=== PATIENT | female | born 1960 | race Caucasian/White ===

== ENCOUNTER → 2017-01-05 | Outpatient (CLI) | payer OTHER ==
--- NOTE | 2017-01-05 11:37 | EST ---
DATE OF SERVICE: 01/05/2017 AGE: 56Y SEX: F HT: 61 WT: 179 lbs. Protocol Arya: X Other: Stage: II Dur. of Exercise: 4-1/2 minutes *Heart Rate Blood Pressure *Rest: 90 Rest: 119/76 * *Max. Achieved: 161 Maximum BP: 172/95 85% PMHR: 140 100% PMHR: 165 *METS: 5 INDICATIONS: Chest pain. MEDICATIONS: Baseline EKG shows sinus rhythm, inferolateral ST-T wave changes. Patient exercised on Arya protocol for a total of 4-1/2 minutes, achieving 5 METs, 98% of predicted maximal heart rate without chest pain. At peak exercise, there was [address] segment depression noted. CONCLUSIONS: 1. Poor exercise tolerance. 2. Inconclusive EKG part of the stress test due to baseline EKG abnormalities.
== END | disposition home or self-care (01) ==
LOC: RADNMMAIN 10:00
PROVIDERS: ATTEND Family Medicine
DX: R07.89 Other chest pain (principal)
CPT/HCPCS: 93017

== ENCOUNTER → 2017-11-30 | Outpatient (CLI) | payer OTHER ==
--- NOTE | 2017-12-03 11:33 | MM ---
Reason for exam: screening (asymptomatic). Last mammogram was performed 2 years and 9 months ago. History: Patient is postmenopausal. Family history of breast cancer in grandmother. Took hormonal contraceptives for 3 years beginning at age 18. Took estrogen for 1 year. Physical Findings: A clinical breast exam by your physician is recommended on an annual basis and results should be correlated with mammographic findings. MG Screening Mammo w CAD Bilateral CC and MLO view(s) were taken. Prior study comparison: February 19, 2015, bilateral MG screening mammo w CAD. March 28, 2013, bilateral digital screening mammo w/CAD. The breast tissue is heterogeneously dense. This may lower the sensitivity of mammography. There is no discrete abnormality. No significant changes when compared with prior studies. ASSESSMENT: Negative, BI-RAD 1 RECOMMENDATION: Routine screening mammogram of both breasts in 1 year.
== END | disposition home or self-care (01) ==
LOC: RADMAMWWP 09:41
PROVIDERS: ATTEND Family Medicine
DX: Z12.31 Encounter for screening mammogram for malignant neoplasm of breast (principal)
CPT/HCPCS: 77067

== ENCOUNTER → 2018-07-26 | Outpatient (CLI) | payer OTHER ==
--- NOTE | 2018-07-26 16:36 | MR ---
MRI CERVICAL SPINE: CLINICAL HISTORY: Benign head tremor, spondylosis, neck pain TECHNIQUE: Multiplanar, multisequence imaging of the cervical spine and brain COMPARISON: Prior MR cervical spine 03/19/2015 FINDINGS: Sagittal images of the cervical spine show the craniocervical junction to appear within nor mal limits. There may be a spinal curvature. The cervical and upper thoracic spinal cord is normal in course, caliber, and signal. Cervical vertebral bodies show preserved height. There is multilevel spondylosis. Endplate discogenic marrow signal changes are present. Alignment is near stable. Loss of disc height signal is greatest at C4-5, C5-6, C6-7. C2-3 shows minimal anterolisthesis grade 1, no foraminal encroachment or central stenosis, no disc he rniation. C3-4: No significant central stenosis. No sizable disc herniation. Mild right-sided foraminal encroac hment. C4-5: Posterior broad-based disc bulge causes mild anterior mass effect on the thecal sac. No signifi cant central stenosis. Lateral extension endplate disc complex encroaches on bilateral foramina right greater than left. C5-6: Lateral extension endplate disc complex causes foraminal encroachment greater than right. Poste rior extension endplate disc complex causes mild anterior mass effect on the thecal sac, no significa nt central stenosis. C6-7: Broad-based disc bulge causes mild anterior mass effect on the thecal sac. There is some mild b ilateral foraminal encroachment. C7-T1: Unremarkable IMPRESSION: Stable mild degenerative disc disease. Brain MRI: There is no restricted diffusion. No hydrocephalus or hemorrhage. Corpus callosum, cervica l medullary junction, cerebellopontine angles are unremarkable. There is a partially empty sella. The re are normal vascular flow voids. The orbits show a symmetric appearance. Scattered hyperintensities are present within the frontal white matter on inversion recovery and T2-weighted sequences, approxi mately 5 lesions. Mild mucosal disease present within the ethmoid air cells, maxillary sinus, may be mucus retention cyst on the left. IMPRESSION: Nonspecific white matter demyelination of questionable clinical significance.
== END | disposition home or self-care (01) ==
LOC: RADMRIMAIN 14:56
PROVIDERS: ATTEND Psychiatry & Neurology Neurology
DX: M50.30 Other cervical disc degeneration, unspecified cervical region (principal); G37.8 Other specified demyelinating diseases of central nervous system; G25.0 Essential tremor
CPT/HCPCS: 70551; 72141

== ENCOUNTER → 2018-09-06 | Outpatient (CLI) | payer OTHER ==
--- NOTE | 2018-09-08 11:52 | MR ---
EXAMINATION TYPE: MR knee RT wo con DATE OF EXAM: 09/06/2018 COMPARISON: None HISTORY: Rt knee pain TECHNIQUE: Multiplanar, multisequence images of the knee is performed without IV contrast. FINDINGS: MEDIAL MENISCUS: Anterior and posterior horns are intact without tear. LATERAL MENISCUS: Anterior posterior horn of meniscus tear. Anterior displacement of anterior horn te ar. CRUCIATE LIGAMENTS: The anterior and posterior cruciate ligaments are intact and unremarkable. COLLATERAL LIGAMENTS: The medial collateral ligament and lateral collateral ligament complex are inta ct and unremarkable. EXTENSOR MECHANISM: Visualized quadriceps and patellar tendons are intact. EFFUSION: Mild to moderate joint effusion suprapatellar effusion. POPLITEAL CYST: No popliteal/hughes cyst. TRICOMPARTMENT SPACES: Severe narrowing tricompartment joint spaces compatible with osteoarthritis. A ssociated spur formation. Subchondral cyst formation. Mild chondromalacia patella. CARTILAGE: Cartilaginous thinning BONE MARROW SIGNAL: No focal abnormal marrow signal is appreciated. OTHER: No additional significant abnormality is appreciated. IMPRESSION: 1 complex tear anterior horn lateral meniscus. Radial tear posterior horn lateral meniscus meniscus. 2. Moderately advanced changes of osteoarthritis and chondromalacia patella.
== END | disposition home or self-care (01) ==
LOC: RADMRIMAIN 18:38
PROVIDERS: ATTEND Physician Assistant
DX: S83.271A Complex tear of lateral meniscus, current injury, right knee, initial encounter (principal); M17.11 Unilateral primary osteoarthritis, right knee; M22.41 Chondromalacia patellae, right knee

== ENCOUNTER → 2018-10-18 | Outpatient (CLI) | payer OTHER ==
[2018-10-18 16:36] LABS: HCT 41.1 % (34.0-46.0); HGB 13.6 gm/dL (11.4-16.0); MCH 29.1 pg (25.0-35.0); MCV 88.3 fL (80.0-100.0); Mean Platelet Volume 6.6; Platelet Count 230 k/uL (150-450); RBC 4.66 m/uL (3.80-5.40); RDW 13.3 % (11.5-15.5); WBC 3.7 k/uL (3.8-10.6)
[2018-10-18 16:39] LABS: Appearance,Urine Clear (Clear); Bilirubin,Urine Negative (Negative); Blood,Urine Trace (Negative); Color,Urine Light Yellow; Glucose,Urine (UA) Negative (Negative); Ketones,Urine Negative (Negative); Leukocyte Esterase,Urine Moderate (Negative); Mucus,Urine Rare /hpf; Nitrite,Urine Negative (Negative); Protein,Urine Negative (Negative); RBC,Urine 2 /hpf (0-5); Specific Gravity,Urine 1.011 (1.001-1.035); Squamous Epithelial Cell,Urine 3 /hpf (0-4); Urobilinogen,Urine <2.0 mg/dL (<2.0); WBC,Urine 3 /hpf (0-5)
[2018-10-18 16:41] LABS: Partial Thromboplastin Time 30.3 sec (22.0-30.0); Prothrombin Time 10.4 sec (9.0-12.0)
[2018-10-18 16:44] LABS: Albumin 4.1 g/dL (3.5-5.0); Calcium 9.2 mg/dL (8.4-10.2); Potassium 4.4 mmol/L (3.5-5.1); Total Bilirubin 0.3 mg/dL (0.2-1.3); Total Protein 6.7 g/dL (6.3-8.2)
== END | disposition home or self-care (01) ==
LOC: LABPAT 15:40
PROVIDERS: ATTEND Orthopaedic Surgery Sports Medicine
DX: Z01.818 Encounter for other preprocedural examination (principal); Z01.812 Encounter for preprocedural laboratory examination
CPT/HCPCS: 36415; 80053; 81001; 85027; 85610; 85730; 87070; 93005

== ENCOUNTER 2018-11-06 10:51 | Inpatient (IN) | payer OTHER ==
[2018-10-23 11:20] VITALS: BMI 25.9
[~2018-11-06 10:51] MED LIST: ACETAMINOPHEN TAB 500 MG TAB PO ONE; DEXAMETHASONE SOD PHOSPHATE 10 MG/ML 1 ML VIAL IV ONE; HYDROmorphone 0.5 MG/0.5 ML SYRINGE IVP PRN; LIDOCAINE 1% 20 ML VIAL (10MG/ML) FOR IV START INTRADERMA PRN; MELOXICAM 7.5 MG TAB PO ONE; MIDAZOLAM (PF) 2 MG/2 ML VIAL IV PRN; ONDANSETRON 4 MG/2 ML VIAL IVP ONE; ROPIVACAINE 246.25 MG, EPINEPHrine 0.5 MG, KETOROLAC 30 MG, cloNIDine HCL/PF 80 MCG, WA... MISCELLANE ONE; SCOPOLAMINE 1.5MG/72HR PATCH TRANSDERM ONE; TRANEXAMIC ACID 1,000 MG in SODIUM CHLORIDE 0.9% 50 ML IVPB ONE; ceFAZolin IN SWFI 2 GM/20 ML SYRINGE IVP ONE
[2018-11-06] MEDS: LACTATED RINGERS 1,000 ML IV SCH ×4 (11:27→23:25)
[2018-11-06] MEDS ORDERED: HYDROcodone/APAP 5-325MG 1 EACH TAB PO PRN (12:48)
[2018-11-06] MEDS ORDERED: HYDROcodone/APAP 10-325MG 1 EACH TAB PO PRN (12:48)
[2018-11-06] MEDS ORDERED: BISACODYL 10 MG SUPP RECTAL PRN (12:48)
[2018-11-06] MEDS ORDERED: MAGNESIUM HYDROXIDE 2,400 MG/10 ML CUP PO PRN (12:48)
[2018-11-06] MEDS ORDERED: hydrOXYzine PAMOATE 25 MG CAP PO PRN (12:48)
[2018-11-06] MEDS ORDERED: traMADol 50 MG TAB PO PRN (12:48)
[2018-11-06] MEDS ORDERED: TEMAZEPAM 15 MG CAP PO PRN (12:48)
[2018-11-06] MEDS ORDERED: HYDROmorphone 1 MG/ML 1 ML SYRINGE IVP PRN (12:48)
[2018-11-06] MEDS ORDERED: ACETAMINOPHEN TAB 325 MG TAB PO PRN (12:48)
[2018-11-06] MEDS ORDERED: HYDROmorphone 0.5 MG/0.5 ML SYRINGE IVP PRN ×2 (12:48)
[2018-11-06] MEDS ORDERED: HYDROcodone/APAP 7.5-325MG 1 EACH TAB PO PRN (12:48)
[2018-11-06] MEDS ORDERED: Acetaminophen-Codeine 300-30mg TAB PO PRN (12:48)
[2018-11-06] MEDS ORDERED: NALOXONE 0.4 MG/ML 1 ML VIAL IV PRN ×2 (12:48→16:57)
[2018-11-06] MEDS ORDERED: DIAZEPAM 5 MG TAB PO PRN (12:48)
[2018-11-06] MEDS ORDERED: NA PHOS,M-B/NA PHOS,DI-BA 133 ML ENEMA RECTAL PRN (12:48)
[2018-11-06] MEDS ORDERED: MORPHINE SULFATE (PF) 0.3 MG/0.3 ML SYR ONE (13:13)
[2018-11-06] MEDS ORDERED: PHENYLEPHRINE-0.9% NACL SYG 1 MG/10 ML SYRINGE ONE (13:13)
[2018-11-06] MEDS ORDERED: LIDOCAINE 1% INJ 10MG/ML (20 ML MDV) ONE (13:13)
[2018-11-06] MEDS ORDERED: TRANEXAMIC ACID 1,000 MG/10 ML VIAL ONE (13:13)
[2018-11-06] MEDS ORDERED: MIDAZOLAM 2 MG/2 ML VIAL ONE (13:13)
[2018-11-06] MEDS ORDERED: fentaNYL (PF) 50 MCG/ML 50 ML VIAL ONE (13:13)
[2018-11-06] MEDS ORDERED: PROPOFOL 10 MG/ML 20 ML VIAL IV ONE (13:13)
[2018-11-06] MEDS ORDERED: SODIUM CHLORIDE 0.9% 100 ML BAG ONE (13:13)
[2018-11-06] MEDS ORDERED: ceFAZolin 3,000 MG in SODIUM CHLORIDE 0.9% IRRIGATIO 3,000 ML IRRIGATION ONE (13:52)
--- NOTE | 2018-11-06 15:53 | XR ---
EXAMINATION TYPE: XR knee limited RT DATE OF EXAM: 11/06/2018 CLINICAL HISTORY: Right knee pain and arthritis status post total knee replacement. TECHNIQUE: Portable AP and crosstable lateral views of the right knee are obtained immediately posto peratively. COMPARISON: Right knee MRI September 06, 2018 FINDINGS: Metallic hardware from total right knee arthroplasty is seen and appears satisfactory in a lignment and position. There is evidence of recent surgery with diffuse subcutaneous gas and soft ti ssue swelling noted. IMPRESSION: METALLIC HARDWARE FROM TOTAL RIGHT KNEE ARTHROPLASTY IS SATISFACTORY IN ALIGNMENT.
[2018-11-06] MEDS ORDERED: LACTATED RINGERS 1,000 ML IV ONE ×2 (16:47)
[2018-11-06] MEDS ORDERED: ONDANSETRON 4 MG/2 ML VIAL IVP PRN (16:57)
[2018-11-06] MEDS ORDERED: diphenhydrAMINE 50 MG/ML 1 ML VIAL IVP PRN (16:57)
[2018-11-06] MEDS ORDERED: MORPHINE SULFATE 4 MG/ML SYRINGE IVP PRN (16:57)
--- NOTE | 2018-11-06 18:10 | OP ---
OPERATIVE REPORT PROCEDURE: 11/06/2018. SURGEON: Dr. Adolph Quintanilla. MANAGER BUSINESS PROCESS: Jarrell HURTADO. PREOPERATIVE DIAGNOSIS: Right knee osteoarthrosis. POSTOP DIAGNOSIS: Right knee osteoarthrosis. OPERATION: Right total knee arthroplasty. ANESTHESIA: Spinal with sedation. ESTIMATED BLOOD LOSS: 100 mL. Tourniquet time was 47 minutes at 250 mmHg. COMPLICATIONS: None apparent. DRAINS: None. DISPOSITION: Postanesthesia care unit. INDICATIONS: Olivia is a very pleasant 58-year-old female with longstanding history of right knee pain. History and physical examination are consist with advanced right knee osteoarthrosis. She has been through significant nonoperative management at this point. Further treatment options were discussed and she decided to go forward with right total knee arthroplasty. The risks of procedure were discussed with her in detail. These risks include, but are not limited to risk of infection, nerve damage, bleeding, pain and risk of deep vein thrombosis which could lead to fatal pulmonary embolism. There is also risk of loosening of the implant which could require revision operation. The patient understands these risks. All of her questions were answered to her satisfaction. Appropriate informed consent was obtained. DESCRIPTION OF PROCEDURE: Patient identified in the preoperative holding area. Surgical sites marked by both the patient and myself. She was given 2 g of Ancef IV for prophylactic purposes. She was then transferred to the operative suite. She was placed supine on the operative table. Spinal anesthetic was then administered and dosed per the anesthesia without apparent complication. Examination under anesthesia was then performed. The patient had full extension. She had 100 degrees of flexion and the medial collateral ligament, lateral collateral ligament posterior cruciate ligaments were stable. Tourniquet was then placed high on the right upper thigh well-padded in preparation for surgery. The patient's right lower extremity then prepped and draped in usual sterile fashion. Standard surgical pause undertaken to ensure that we were operating on the correct site and that appropriate preoperative antibiotics were given. All staff in the room in agreement and we proceeded. The outlines of the patella were marked with surgical pen. A planned 10-12 cm vertical incision centered over the patella was marked with surgical pen. Leg was then exsanguinated with an Esmarch dressing. The knee was then flexed and the tourniquet was inflated to 250 mmHg. The total tourniquet time for the procedure was 47 minutes. Incision was then made with a 10 blade scalpel. Dissection was carried down sharply overlying fascia. Great care was taken to minimize the skin flaps. The knee was then exposed using a standard medial parapatellar approach. A small cuff of quadriceps tendon was then left for suturing. She was in a bit of valgus preoperatively. Medially, the tissue was released just enough to place retractors. I did not perform a medial release. The medial meniscus was then excised as well. The lateral meniscus was also released anteriorly. The leg was then externally rotated. The patella was everted and the knee was flexed. The retractors then placed to protect the collateral ligaments. I then proceeded to remove the infrapatellar fat pad. This was excised sharply tangentially with fibers of the patellar tendon. I then proceeded to remove peripheral osteophytes. This was done with a rongeur. I then proceed with the distal femoral resection. She did have near full extension. A planned 9 mm resection was then done. The femoral canal was then entered in the midline of the femur approximately 10 mm anterior to the origin of the posterior cruciate ligament. The janis was then advanced down the center of the femur and placed intramedullary. Based on the preoperative radiographs, the angle between the anatomic and mechanical axis of the femur was approximately 4-5 degrees. The valgus angle of the distal femoral cutting guide was set at 4 degrees for the right knee. The distal femoral cutting guide was then advanced over the intramedullary janis. This was seated firmly against the femur. I then as mentioned planned to take 9 mm off the distal femur. The cutting block was then secured onto the femur with pins. The jig was removed. The distal femoral cut was made through the slot of the block. The pins were then removed. The distal femoral cutting block was removed. The accuracy of the distal femoral cuts was checked with 2 flat bars. I then proceeded with femoral sizing. Posterior referencing sizing guide was held firmly against the resected distal surface of the femur. The posterior condyles were resting on the posterior plane of the guide. The sizing stylus was then placed on the anterior femur. The size measured as a size 4. I then assessed for femoral rotation. Plan was for 3 degrees of external rotation. Three degrees of external rotation was placed onto the jig. These holes were then marked. I then confirmed the rotation by 3 separate methods. This was done using epicondylar axis as well as Whitesides line and posterior referencing. It was deemed that the external rotation was proper. I then went forward with placing the femoral cutting block. This was placed over the previously placed pin holes. The Car wing was then placed on the anterior slots to ensure that we would not notch the anterior femur with the anterior femoral cut. I then proceed with the anterior femoral cut. This was flush with the anterior cortex of the femur. The posterior cuts were then made followed by the anterior chamfer cut, then the posterior chamfer cut. The cutting block was then removed. Throughout the resection, the collateral ligaments were protected with retractors. I then placed a trial size 4 femur. It fit very nice medial-lateral and fit flush with the distal end of the femur. The drill hole was then made. I then proceeded with the tibial cut. I planned for cruciate retaining knee. The guide was placed and set for varus valgus and for slope. The height set for approximate 2 mm resection from the lateral tibial plateau which was the lower side. I was happy with the alignment and the amount of resection. The cutting block was then pinned to the proximal tibia. The alignment janis was removed. The proximal tibia was resected with a reciprocating saw. Again this was done with retractors protecting the collateral ligaments as well as the posterior cruciate ligament. I then proceeded to evaluate the flexion extension gaps. A 10 mm block was then placed. The flexion-extension gaps were equal. I then proceeded with resection of posterior osteophytes. Very minimal posterior osteophytes. This was done with a curved osteotome. This resected the posterior osteophytes and posterior capsule stripping was also done off the posterior aspect of the femur at this time. The osteophytes were then removed. I then proceeded with resection of patella. The thickness of patella was measured using a caliper. The thickness was 22 mm. The thickness of the anticipated patellar dome was taken into account. Resection was then performed and confirmed to be equal in 4 quadrants using a caliper. Approximately 14 mm of bone remained after resection. A 32 x 8 mm standard patellar trial fit was then placed. The holes were drilled. The trial was then placed. I then proceeded with sizing the tibial plate. A size 4 tibial plate fit very nicely. I then placed the trial femur in the tibial tray and patellar button. An 11 mm trial tibial insert was also placed. The components fit very nicely. She had full extension and flexion. The extension and flexion gaps were equal and stable both varus and valgus stress. The patella tracked appropriately. The tibial tray rotation was marked with a Bovie. This was externally rotated properly. I then proceed with tibial preparation. I first drilled the femoral holes, removed the femoral component. The tibial tray was then set for proper external rotation as well as mediolateral placement onto the tibia. It was then pinned into place. I then proceed with punching the keel. I then decided to proceed with cementing of all of our components. The knee was thoroughly irrigated with sterile saline solution via pulse lavage. The lateral geniculate artery was identified and cauterized. All blood was removed from the bone of the tibia femur and patella with pulse lavage. I then proceed with cementing. Two packs of antibiotic bone cement prepared on the back table by the certified surgical first assistant. I then proceeded with cementing the tibia first. The cement was impacted in the keel as well as deeply seated into the bone. A second coat of cement was then placed. The tibia was then impacted into place. Excess cement was removed with Goltry's and jokers. I then proceed with cementing the femoral component. The femoral component was also cemented using standard technique. Excess cement was removed. An 11 mm trial insert was then placed into the knee. It was brought into full extension with a constant axial load placed until the cement had hardened. The patellar component was then cemented. This was held firmly with compressive device until the cement had dried. When the cement had dried, the knee was taken out of extension. All excess cement was removed from around the prosthesis. I then trialed the knee with an 11 mm insert. Flexion extension gaps were appropriate. I then trialed with a 13 mm insert. The flexion-extension gaps felt much better. The knee was stable with a 13 mm insert. It came into full extension. I decided to go forward with a 13 mm cross-linked cruciate- retaining tibial insert. Polyethylene was then placed on the tray and locked into place. The knee was then reduced. The knee was again further irrigated with sterile saline solution with antibiotic added. The tourniquet was then deflated. Total tourniquet time for the procedure was 47 minutes at 250 mmHg. Final components were a [employer] Oxinium legion size 4 cruciate-retaining femoral component, size 4 tibial tray, and a 13 mm cruciate retaining polyethylene insert and a 32 x 8 mm patella. I then proceeded with closure. Again, the knee was thoroughly irrigated. The quadriceps tendon and the medial retinaculum were reapproximated with #2 Ethibond suture. The extensor mechanism was then closed with a running #2 Quill suture. Subcutaneous tissues were closed with 2-0 Vicryl suture. The skin was closed with a running 3-0 Quill suture. Dermabond was applied to the incision. Sterile compressive dressing was then applied. All sponge and needle counts were deemed correct prior to closure. The patient tolerated the procedure without apparent complication. She was transferred recovery room in stable condition. MMODL / IJN: [id number] /
[2018-11-06] MEDS ORDERED: LACTATED RINGERS 250 ML IV PRN (18:30)
[2018-11-06] MEDS ORDERED: CALCIUM CARBONATE 500 MG CHEWABLE PO PRN (19:21)
[2018-11-06] MEDS ORDERED: LISINOPRIL 5 MG TAB PO SCH (21:00)
[2018-11-06] MEDS: SENNOSIDES-DOCUSATE SODIUM 1 EACH TAB PO SCH (23:24)
[2018-11-06] MEDS: ceFAZolin IN SWFI 2 GM/20 ML SYRINGE IVP SCH (23:24)
[2018-11-06] MEDS: ASPIRIN 325 MG TAB PO SCH (23:24)
[2018-11-06] MEDS: ATORVASTATIN 20 MG TAB PO SCH (23:24)
--- NOTE | 2018-11-07 00:51 | CONS ---
CONSULTATION DATE OF CONSULTATION: November 06, 2018. REASON FOR CONSULTATION: Medical management requested by Dr. Quintanilla. CONSULTATION: This is a pleasant 58 -year-old patient of Dr. Jurado. Chronic stable medical conditions include hypertension, hyperlipidemia, depression, hypothyroid. Has undergone right total knee arthroplasty. Some pain is present. Did feel a bit dizzy earlier. No chest pain or short of breath. Did tolerate some diet. Lying in bed. Pain is relatively controlled though present. REVIEW OF SYSTEMS: CONSTITUTIONAL: None. HEENT: None. RESPIRATORY none. GASTROINTESTINAL: None. GENITOURINARY: None. MUSCULOSKELETAL: Arthritic pain in different joints. DERMATOLOGICAL, HEMATOLOGIC, LYMPHATIC: None. PSYCHIATRY: Depression controlled. NEUROLOGICAL: Some dizziness. PAST MEDICAL HISTORY: Hypertension, hyperlipidemia, osteoarthritis, depression, hypothyroid. PAST SURGICAL HISTORY: Tubal ligation, right carpal tunnel syndrome, right knee arthroscopy, tendon graft right hand, colonoscopy. PSYCH: History of depression. SOCIAL HISTORY: The patient smoked for about 17 years. Smoked a pack and a half a day, stopped 18 years ago. Has 1 or 2 drinks a day. Lives with her . FAMILY HISTORY: Breast cancer. HOME MEDICATIONS: 1. Topamax 100 mg p.o. daily. 2. Fish oil 1000 mg p.o. q.h.s. 3. Antivert 12.5 p.o. b.i.d. p.r.n. 4. Zestril 5 mg q.h.s. 5. Synthroid 25 mcg p.o. daily. 6. Motrin p.r.n. 7. Pristiq ER 100 mg p.o. daily. 8. TUMS 500 mg q.i.d. p.r.n. 9. Lipitor 20 mg q.h.s. 10.Aspirin 325 p.o. daily. ALLERGIES: TO CODEINE AND NICKEL. PHYSICAL EXAMINATION: VITAL SIGNS: Temperature 98.8, pulse 81, respiration 16, blood pressure 98/59, pulse ox 100 percent. GENERAL APPEARANCE: Average build, lying in bed, not in distress. EYES: Pupils equal. Conjunctivae normal. HEENT: External appearance of nose and ears normal. Oral cavity normal. NECK: JVD not raised. Mass not palpable. RESPIRATORY: Effort normal. LUNGS: Fair entry. CARDIOVASCULAR: First and second sounds normal. No edema. ABDOMEN: Soft, nontender. Liver and spleen not palpable. LYMPHATIC: No lymph nodes palpable in the neck and axilla. PSYCHIATRY: Alert and oriented x3. Mood and affect normal. NEUROLOGICAL: Pupils equal. Cranial nerves grossly intact. Power and sensation grossly intact. MUSCULOSKELETAL: Evidence of osteoarthritis some in the hands. Right knee in a dressing. INVESTIGATIONS: Preop blood work showed a white count 3.7, hemoglobin 13.6, potassium 4.4, BUN 19, creatinine 1.10. ASSESSMENT: 1. Right total knee arthroplasty. 2. Hyperlipidemia. 3. Primary osteoarthritis. 4. Depression not otherwise specified. 5. Hypothyroidism. 6. Postop hypotension probably side effect of medications. PLAN: Home medications are resumed. We will hold off patient's Zestril. The patient is given some fluid boluses. We will repeat labs in the morning. Care was discussed with the patient. Questions were answered. Thank you Dr. Quintanilla. Copy to Dr. Jurado. MMODL / MARKOSN: [id number] /
[2018-11-07] MEDS: LEVOTHYROXINE 25 MCG TAB PO SCH (05:25)
[2018-11-07] MEDS: ceFAZolin IN SWFI 2 GM/20 ML SYRINGE IVP SCH (05:25)
--- NOTE | 2018-11-07 07:42 | P.PN ---
Progress Note - Text Progress Note Date: 11/07/18 Postoperative day 1 status post , the knee arthroplasty under spinal anesthesia , and intrathecal morphine given for postoperative analgesia, patient doing well , there is no anesthesia related complications, Patient had no headache, vital signs stable , Assessment and plan= postop day 1 status post total knee arthroplasty, doing well there is no anesthesia related complication.
--- NOTE | 2018-11-07 08:48 | P.PN ---
Subjective Progress Note Date: 11/07/18 Principal diagnosis: S/P Right TKA Patient is seen at bedside this morning. She is postop day #1 from right totoal knee arthroplasty.. She has pain at the surgical site as expected but denies any new complaints. He denies numbness, tingling or calf pain. Review of systems is negative for fever, chills, chest pain, shortness of breath or other Objective - Vital Signs Vital signs: Vital Signs Temp 98.3 F 11/07/18 00:23 Pulse 87 11/07/18 00:23 Resp 16 11/07/18 00:23 BP 100/60 11/07/18 02:01 Pulse Ox 97 11/07/18 00:23 Intake & Output 11/06/18 11/07/18 11/07/18 18:59 06:59 18:59 Intake Total 2101.5 1870 Output Total 100 250 Balance 2001.5 1620 Intake: IV 2101.5 Intake, IV Titration 200 Amount Lactated Ringers 1,000 ml 200 @ 100 mls/hr IV .Q10H PAMELA Rx#:[id number] Oral 1670 Output: Urine 250 Estimated Blood Loss 100 Other: Voiding Method Toilet # Voids 1 - Exam Inspection reveals a benign surgical wound. There is no active bleeding or drainage. Neurovascular status is intact throughout the lower extremity with motor and sensation fully intact. Calf is soft and nontender. 2+ dorsalis pedis pulse and less than 2 second cap refill is present. - Constitutional General appearance: Present: no acute distress Assessment and Plan (1) Knee osteoarthritis Narrative/Plan: He will continue with routine postop orthopedic protocol including pain management, wound care, PT, DVT prophylaxis and medical management. Expect that he will transfer to home tomorrow Current Visit: Yes Status: Acute Priority: Medium Code(s): M17.10 - UNILATERAL PRIMARY OSTEOARTHRITIS, UNSPECIFIED KNEE SNOMED Code(s): 540900147 Time with Patient: Less than 30
[2018-11-07 08:55] LABS: Calcium 8.4 mg/dL (8.4-10.2)
[2018-11-07 09:08] LABS: Basophils % (A) 0 %; Eosinophils % (A) 0 %; Lymphocytes # (A) 1.1 k/uL (1.0-4.8); Lymphocytes % (A) 19 %; MCH 29.5 pg (25.0-35.0); MCV 89.3 fL (80.0-100.0); Mean Platelet Volume 6.4; Monocytes # (A) 0.3 k/uL (0-1.0); Monocytes % (A) 5 %; Neutrophils # (A) 4.1 k/uL (1.3-7.7); Neutrophils % (A) 74 %; Platelet Count 191 k/uL (150-450); RBC 3.47 m/uL (3.80-5.40); RDW 12.7 % (11.5-15.5); WBC 5.6 k/uL (3.8-10.6)
[2018-11-07 09:10] LABS: HGB 10.2 gm/dL (11.4-16.0)
[2018-11-07] MEDS: DESVENLAFAXINE SUCCINATE 50 MG TAB.ER.24H PO SCH (09:27)
[2018-11-07] MEDS: ASPIRIN 325 MG TAB PO SCH ×2 (09:27→21:36)
[2018-11-07] MEDS: TOPIRAMATE 25 MG TAB PO SCH ×2 (09:27→21:36)
[2018-11-07] MEDS: HYDROcodone/APAP 5-325MG 1 EACH TAB PO PRN ×2 (09:30→14:59)
[2018-11-07] MEDS: LACTATED RINGERS 1,000 ML IV SCH (14:00)
[2018-11-07] MEDS: MULTIVITAMINS, THERA 1 EACH TAB PO SCH (14:00)
--- NOTE | 2018-11-07 17:58 | PN ---
PROGRESS NOTE DATE OF SERVICE: 11/07/2018 PRESENTING COMPLAINT: Right knee arthroplasty. INTERVAL HISTORY: Patient is status post right knee arthroplasty. Some pain is present. Has slight nausea. Did tolerate some breakfast. Did work with therapy. No chest pain or shortness of breath. Otherwise feeling well. REVIEW OF SYSTEMS: Done for constitutional, cardiovascular, GI, pulmonary, musculoskeletal; relevant findings as above. CURRENT MEDICATIONS: Reviewed. PHYSICAL EXAMINATION: Temperature 98.1, pulse 57, respiration 18, blood pressure 98/56, pulse 100% on room air. GENERAL APPEARANCE: Sitting up. Comfortable. EYES: Pupils equal. Conjunctivae normal. NECK: JVD not raised. Mass not palpable. RESPIRATORY: Effort normal. Lungs are clear. CARDIOVASCULAR: First and second sounds normal. No edema. ABDOMEN: Soft, non-tender. Liver and spleen not palpable. PSYCHIATRY: Alert and oriented x3. Mood and affect normal. INVESTIGATIONS: White count 5.6, hemoglobin 10.2. ASSESSMENT: 1. Right total knee arthroplasty. 2. Hyperlipidemia. 3. Primary osteoarthritis. 4. Depression not otherwise specified. 5. Hypothyroidism. 6. Postoperative hypertension; secondary side effect of blood loss. 7. Acute blood loss anemia, expected from surgery. PLAN: Continue to hold off patient's Zestril. This can be resumed once the blood pressure comes above 120. Care was discussed with the patient. Questions were answered. Will follow. MMODL / IJN: [id number] /
[2018-11-07] MEDS ORDERED: HYDROcodone/APAP 7.5-325MG 1 EACH TAB PO PRN (18:40)
[2018-11-07] MEDS: FERROUS SULFATE 325 MG TAB PO SCH (18:41)
[2018-11-07] MEDS: HYDROcodone/APAP 7.5-325MG 1 EACH TAB PO PRN (19:00)
[2018-11-07] MEDS: SENNOSIDES-DOCUSATE SODIUM 1 EACH TAB PO SCH (21:35)
[2018-11-07] MEDS: ATORVASTATIN 20 MG TAB PO SCH (21:36)
[2018-11-08 01:22] VITALS: PULSE 79
[2018-11-08] MEDS: HYDROcodone/APAP 7.5-325MG 1 EACH TAB PO PRN ×3 (01:45→15:22)
[2018-11-08] MEDS: LEVOTHYROXINE 25 MCG TAB PO SCH (05:33)
[2018-11-08] MEDS: TOPIRAMATE 25 MG TAB PO SCH (08:32)
[2018-11-08] MEDS: FERROUS SULFATE 325 MG TAB PO SCH ×2 (08:32→16:47)
[2018-11-08] MEDS: MULTIVITAMINS, THERA 1 EACH TAB PO SCH (08:33)
[2018-11-08 08:42] VITALS: BP 116/64; RESP 16; TEMP 98.1
[2018-11-08 08:54] LABS: Calcium 8.7 mg/dL (8.4-10.2); Potassium 4.4 mmol/L (3.5-5.1)
[2018-11-08] MEDS: DESVENLAFAXINE SUCCINATE 50 MG TAB.ER.24H PO SCH (10:43)
[2018-11-08] MEDS: ASPIRIN 325 MG TAB PO SCH (10:43)
--- NOTE | 2018-11-08 12:28 | P.DS ---
Providers Date of admission: 11/06/18 10:51 Expected date of discharge: 11/08/18 Attending physician: Adolph Quintanilla Consults: 11/06/18 12:48 Consult Physician Routine Consulting Provider: Lb Magana Consult Reason/Comments: post op medical management Do you want consulting provider notified?: Yes Primary care physician: Garret Jurado - Discharge Diagnosis(es) (1) Knee osteoarthritis Patient was admitted to the OR on 11/06/2018 to undergo a right total knee arthroplasty. She had failed conservative measures as an outpatient and desired to proceed with elective surgery after given informed consent. She underwent the above procedure which she tolerated well without complication. Postoperative hospital course has remained without complication. On day of discharge she is afebrile, vital signs stable, labs within acceptable ranges, tolerating by mouth meds and diet, voiding without difficulty, positive flatus, denies abdominal pain or calf pain, pain is controlled on oral pain medication and has no new complaints. Wound is benign, neurovascular status is intact, calf is soft and nontender, abdomen soft and nontender. Review of systems is negative for numbness, tingling, fever, chills, chest pain, shortness breath, nausea, vomiting, dizziness, headaches, slurred speech or other. Current Visit: Yes Status: Acute Priority: Medium Procedures: Right TKA Patient Condition at Discharge: Good Plan - Discharge Summary Discharge Rx Participant: Yes New Discharge Prescriptions: New Ferrous Sulfate [Feosol] 325 mg PO BID #1 tab Aspirin 325 mg PO BID #60 tab Docusate [Colace] 100 mg PO BID #60 capsule traMADol HCL [Ultram] 50 mg PO Q4HR PRN #42 tab PRN Reason: Pain No Action Levothyroxine Sodium [Synthroid] 25 mcg PO DAILY Desvenlafaxine Succinate [Pristiq ER] 100 mg PO DAILY Topiramate [Trokendi Xr] 100 mg PO DAILY Lu[place]-3 Fatty Acids/Fish Oil [Fish Oil 1,000 mg Softgel] 1 cap PO HS Lisinopril [Zestril] 5 mg PO HS Calcium Carbonate [Tums] 500 mg PO QID PRN PRN Reason: GERD Ibuprofen [Motrin] 800 mg PO Q8H PRN PRN Reason: Pain Meclizine [Antivert] 12.5 mg PO BID PRN PRN Reason: Vertigo Aspirin 325 mg PO DAILY Atorvastatin [Lipitor] 20 mg PO HS Discharge Medication List Desvenlafaxine Succinate [Pristiq ER] 100 mg PO DAILY 03/04/15 [History] Levothyroxine Sodium [Synthroid] 25 mcg PO DAILY 03/04/15 [History] Lupton-3 Fatty Acids/Fish Oil [Fish Oil 1,000 mg Softgel] 1 cap PO HS 08/20/15 [ History] Topiramate [Trokendi Xr] 100 mg PO DAILY 08/20/15 [History] Aspirin 325 mg PO DAILY 10/23/18 [History] Atorvastatin [Lipitor] 20 mg PO HS 10/23/18 [History] Calcium Carbonate [Tums] 500 mg PO QID PRN 10/23/18 [History] Ibuprofen [Motrin] 800 mg PO Q8H PRN 10/23/18 [History] Lisinopril [Zestril] 5 mg PO HS 10/23/18 [History] Meclizine [Antivert] 12.5 mg PO BID PRN 10/23/18 [History] Ferrous Sulfate [Feosol] 325 mg PO BID #1 tab 11/07/18 [Rx] Aspirin 325 mg PO BID #60 tab 11/08/18 [Rx] Docusate [Colace] 100 mg PO BID #60 capsule 11/08/18 [Rx] traMADol HCL [Ultram] 50 mg PO Q4HR PRN #42 tab 11/08/18 [Rx] Follow up Appointment(s)/Referral(s): [facility] [NON-STAFF] - As Needed (suzanne ) [facility], [NON-STAFF] - As Needed Adolph Quintanilla MD [STAFF PHYSICIAN] - 10 Days Activity/Diet/Wound Care/Special Instructions: Keep wound clean and dry Take meds as directed Follow-up with Dr. Quintanilla in office Weight bear as tolerated May shower in 3 days if no bleeding Discharge Disposition: HOME WITH HOME HEALTH SERVICES
--- NOTE | 2018-11-08 21:16 | PN ---
PROGRESS NOTE DATE OF SERVICE: 11/08/2018. PRESENTING COMPLAINT: Right knee arthroplasty. INTERVAL HISTORY: Patient is status post right knee arthroplasty. Some pain is present. Doing overall better. Did eat well. is present. No new issues. Did work with Therapy. REVIEW OF SYSTEMS: Done for constitutional, cardiovascular, GI, pulmonary, musculoskeletal; relevant findings as above. CURRENT MEDICATIONS: Reviewed. PHYSICAL EXAMINATION: Temperature 98.1, pulse 79, respiration 16, blood pressure 106/64, pulse 100 percent on room air. GENERAL APPEARANCE: Sitting up, comfortable. EYES: Pupils equal. Conjunctivae normal. NECK: JVD not raised. Mass not palpable. Respiratory effort normal. LUNGS: Clear. CARDIOVASCULAR: 1st and 2nd heart sounds normal. No edema. ABDOMEN: Soft nontender. Liver and spleen not palpable. PSYCHIATRY: Alert and oriented x3. Mood and affect normal. Dressing over the right knee. INVESTIGATIONS: Potassium 4.4. ASSESSMENT: 1. Right total knee arthroplasty. 2. Hyperlipidemia. 3. Primary osteoarthritis. 4. Depression, not otherwise specified. 5. Hypothyroidism. 6. Postoperative hypotension secondary side effect of blood loss, improving. 7. Acute blood loss anemia expected from surgery. PLAN: The patient is overall doing much better. Blood pressure has come up. When discharged should follow up with the family doctor. MMODL / IJN: [id number] /
== END 2018-11-08 17:12 | disposition home health service (06) | DRG 470 ==
LOC: 2ORMAIN 10:51 → 4SSUR 16:47
PROVIDERS: ADMIT Orthopaedic Surgery Sports Medicine; ATTEND Orthopaedic Surgery Sports Medicine
PROC: 0SRC069 Replacement of Right Knee Joint with Oxidized Zirconium on Polyethylene Synthetic Substitute, Cemented, Open Approach (ICD-10-PCS; principal; 2018-11-06 12:45)
DX: M17.11 Unilateral primary osteoarthritis, right knee (principal); D62 Acute posthemorrhagic anemia; E03.9 Hypothyroidism, unspecified; E78.5 Hyperlipidemia, unspecified; F32.9 Major depressive disorder, single episode, unspecified; I10 Essential (primary) hypertension; Z80.3 Family history of malignant neoplasm of breast; Z87.891 Personal history of nicotine dependence; I34.0 Nonrheumatic mitral (valve) insufficiency; Z82.49 Family history of ischemic heart disease and other diseases of the circulatory system; Z79.82 Long term (current) use of aspirin; Z79.899 Other long term (current) drug therapy; Z79.890 Hormone replacement therapy; Z88.5 Allergy status to narcotic agent; Z90.49 Acquired absence of other specified parts of digestive tract
CPT/HCPCS: 80048; 85025; 88300

== ENCOUNTER 2019-01-06 11:07 | Observation (INO) | payer OTHER ==
[2019-01-06] MEDS ORDERED: NITROGLYCERIN SL TABS 0.4 MG TAB SUBLINGUAL STA (11:24)
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
[2019-01-06 12:00] LABS: Basophils % (A) 0 %; Eosinophils % (A) 1 %; HCT 43.2 % (34.0-46.0); HGB 14.4 gm/dL (11.4-16.0); Lymphocytes # (A) 0.8 k/uL (1.0-4.8); Lymphocytes % (A) 36 %; MCH 28.8 pg (25.0-35.0); MCHC 33.4 g/dL (31.0-37.0); MCV 86.1 fL (80.0-100.0); Mean Platelet Volume 6.5; Monocytes # (A) 0.1 k/uL (0-1.0); Monocytes % (A) 5 %; Neutrophils # (A) 1.3 k/uL (1.3-7.7); Neutrophils % (A) 56 %; Platelet Count 221 k/uL (150-450); RBC 5.01 m/uL (3.80-5.40); RDW 12.6 % (11.5-15.5); WBC 2.3 k/uL (3.8-10.6)
[2019-01-06 12:20] LABS: Albumin 4.3 g/dL (3.5-5.0); Calcium 9.7 mg/dL (8.4-10.2); Total Bilirubin 0.8 mg/dL (0.2-1.3); Total Protein 7.4 g/dL (6.3-8.2)
[2019-01-06 12:26] LABS: Partial Thromboplastin Time 24.8 sec (22.0-30.0); Potassium 4.5 mmol/L (3.5-5.1); Prothrombin Time 10.9 sec (9.0-12.0)
[2019-01-06 12:28] LABS: D-Dimer 0.71 mg/L FEU (<0.60)
--- NOTE | 2019-01-06 12:28 | XR ---
EXAMINATION TYPE: XR chest 2V DATE OF EXAM: 01/06/2019 COMPARISON: NONE HISTORY: Shortness of breath TECHNIQUE: Frontal and lateral views of the chest are obtained. FINDINGS: Scattered senescent parenchymal changes noted. Hyperinflation compatible with COPD. No evidence for infiltrate. No evidence for atelectasis. Heart size is stable. Mediastinal structures are stable and grossly unremarkable. No evidence for hilar prominence. Degenerative changes dorsal spine. IMPRESSION: 1. No evidence for acute pulmonary disease.
--- NOTE | 2019-01-06 13:54 | CT ---
EXAMINATION TYPE: CT angio chest DATE OF EXAM: 01/06/2019 COMPARISON: none HISTORY: vertigo and near syncope CT DLP: 248.8 mGycm CONTRAST: CT chest with contrast and 3D reconstruction with MIP imaging is performed with IV Contrast, patient injected with 100 mL of Isovue 370. Contrast-enhanced CT of the chest was performed through the course of the pulmonary arteries with kyra g and mediastinal window settings submitted. 3D reconstruction with MIP imaging was also performed. PULMONARY ARTERIES: The pulmonary arteries and their major tributaries are patent. I do not see madhavi dence for sizable filling defect to suggest pulmonary embolic process. LUNGS: The lungs are clear and free of infiltrate. No evidence for atelectasis. No pulmonary nodule or mass is detected. No pleural effusion. MEDIASTINUM: Thoracic aorta is of normal caliber,however, evaluation is limited given timing of the contrast bolus. If there is concern for thoracic aortic pathology consider JAJA. Correlate clinicall y . The heart is not enlarged. No evidence for mediastinal mass. No mediastinal lymph nodes greater than 1cm. HILAR STRUCTURES: No evidence for mass. No hilar lymph nodes greater than 1 cm. UPPER ABDOMEN: No significant abnormality is seen. IMPRESSION: 1. No evidence for Pulmonary embolism at this time.
[2019-01-06] MEDS ORDERED: NITROGLYCERIN SL TABS 0.4 MG TAB SUBLINGUAL PRN (13:58)
[2019-01-06] MEDS ORDERED: HEPARIN SODIUM,PORCINE 5,000 UNIT/ML 1 ML VIAL IV ONE (13:58)
[2019-01-06] MEDS ORDERED: SODIUM CHLORIDE 0.9% 1,000 ML IV SCH (14:00)
[2019-01-06] MEDS ORDERED: HEPARIN SOD,PORK IN 0.45% NACL 25,000 UNIT in 0.45% NACL 1 250ML.BAG IV SCH (14:00)
[2019-01-06] MEDS ORDERED: ONDANSETRON ODT 4 MG TAB PO PRN (14:01)
[2019-01-06] MEDS ORDERED: MECLIZINE 12.5 MG TAB PO PRN (14:01)
[2019-01-06 15:01] VITALS: BMI 25.4
[2019-01-06 16:16] LABS: Appearance,Urine Clear (Clear); Bilirubin,Urine Negative (Negative); Blood,Urine Trace (Negative); Color,Urine Light Yellow; Glucose,Urine (UA) Negative (Negative); Ketones,Urine Negative (Negative); Leukocyte Esterase,Urine Large (Negative); Nitrite,Urine Negative (Negative); PH, Urine 6.5 (5.0-8.0); Protein,Urine Negative (Negative); RBC,Urine 6 /hpf (0-5); Specific Gravity,Urine 1.036 (1.001-1.035); Squamous Epithelial Cell,Urine 4 /hpf (0-4); Urobilinogen,Urine <2.0 mg/dL (<2.0); WBC,Urine 34 /hpf (0-5)
[2019-01-06] MEDS ORDERED: HEPARIN SODIUM,PORCINE 5,000 UNIT/ML 1 ML VIAL IV PRN (20:58)
[2019-01-06] MEDS ORDERED: ATORVASTATIN 20 MG TAB PO SCH (21:00)
[2019-01-06] MEDS ORDERED: NON-FORMULARY DRUG (Omega-3 Fatty Acids/Fish Oil [Fish Oil 1,000 Mg Softgel] 1 CAP) PO SCH (21:00)
[2019-01-06] MEDS: NITROGLYCERIN OINT 1 INCH/GM PACKET TOPICAL SCH ×2 (22:00→23:28)
[2019-01-06] MEDS: TOPIRAMATE 25 MG TAB PO SCH (22:00)
[2019-01-06] MEDS: CEPHALEXIN 500 MG CAP PO SCH (22:48)
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
[2019-01-07] MEDS: NITROGLYCERIN OINT 1 INCH/GM PACKET TOPICAL SCH (03:56)
[2019-01-07 06:19] LABS: Cholesterol 125 mg/dL (<200); HDL Cholesterol 52 mg/dL (40-60); LDL Cholesterol,Calculated 65 mg/dL (0-99); Triglycerides 38 mg/dL (<150)
[2019-01-07] MEDS ORDERED: LEVOTHYROXINE 25 MCG TAB PO SCH (06:30)
--- NOTE | 2019-01-07 08:19 | CONS ---
CONSULTATION Mrs. Gutierrez is a 58-year-old female who presented with symptoms of dizziness and chest discomfort. The patient has been followed by Dr. Conrad on a regular basis. Underwent right total knee arthroplasty in October of this year and apparently prior to that, underwent a myocardial perfusion imaging that revealed no evidence of inducible ischemia. Yesterday at physical therapy before starting she got up, got dizzy, subsequently became diaphoretic and had some chest discomfort. Came into the emergency room to be further evaluated. She is feeling well at the time of my evaluation. The patient denies any significant exertional chest discomfort or significant dyspnea, although her activity at this time has been limited because of her knee. She denies any prior history of syncope. No significant arrhythmia. No PND, orthopnea, or peripheral edema. Her coronary risk factors are remarkable for remote history of smoking. She is hyperlipidemic, nondiabetic, no hypertension. MEDICATIONS: Her medications include Lipitor 20 mg daily, Antivert, Synthroid, Pristiq, aspirin once a day, topiramate, omega-3 fish oil and Zofran. REVIEW OF SYSTEMS: RESPIRATORY SYSTEM: She has no documented history of asthma, emphysema or bronchitis. GI SYSTEM: No recent GI bleed. No peptic ulcer disease. SYSTEM: No dysuria or hematuria. NERVOUS SYSTEM: No history of stroke. PHYSICAL EXAMINATION: She is a 58-year-old female, alert, oriented, in no apparent distress. Blood pressure 112/60 with the heart rate in the 80s. HEAD: Normocephalic. EYES: Sclerae anicteric. NECK: Good carotid upstroke. No bruit. No jugular venous distention/ LUNGS: Clear to auscultation. HEART: Regular rate and rhythm. S1, S2. No S3 with a systolic murmur at the base. No diastolic murmur. No rub. ABDOMEN: Soft, nontender. Positive bowel sounds. No organomegaly. EXTREMITIES: No edema. Intact distal pulses. Lab data revealed white blood cell of 2.3, hemoglobin 14.4. D-dimer 0.71. BUN and creatinine 17 and 0.97. Troponin less than 0.012. Cholesterol 125, LDL of 65. CT angiogram of the chest revealed no evidence of pulmonary embolism. EKG revealed sinus mechanism with normal axis and intervals and no acute changes. Chest x-ray shows no evidence of infiltrate. IMPRESSION: 1. Symptoms of dizziness and diaphoresis could be related to orthostatic hypotension. No clear evidence to suggest acute arrhythmia. 2. Chest discomfort atypical for ischemic heart disease. 3. History of hyperlipidemia. RECOMMENDATION: From the cardiac standpoint, I will review the results of her myocardial perfusion imaging that was obtained recently. If there is no evidence of abnormalities then no further cardiac workup will be needed and I would expect she should be able to be discharged home today and follow as an outpatient. Thank you for this consult. We will follow with you. JONAS / IJN: [id number] /
[2019-01-07] MEDS ORDERED: DESVENLAFAXINE SUCCINATE 50 MG TAB.ER.24H PO SCH (09:00)
[2019-01-07] MEDS ORDERED: ASPIRIN 325 MG TAB PO SCH (09:00)
[2019-01-07] MEDS: CEPHALEXIN 500 MG CAP PO SCH (09:44)
[2019-01-07] MEDS: TOPIRAMATE 25 MG TAB PO SCH (09:44)
[2019-01-07 11:38] VITALS: BP 111/72; PULSE 69; RESP 18; TEMP 98.1
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
== END 2019-01-07 15:06 | disposition home or self-care (01) ==
LOC: EC 11:07 → 1SOBS 13:58
PROVIDERS: ADMIT Hospitalist; ATTEND Hospitalist
DX: R07.89 Other chest pain (principal); R42 Dizziness and giddiness; R61 Generalized hyperhidrosis; R06.02 Shortness of breath; R20.2 Paresthesia of skin; R11.10 Vomiting, unspecified; I10 Essential (primary) hypertension; E78.5 Hyperlipidemia, unspecified; M19.90 Unspecified osteoarthritis, unspecified site; R25.1 Tremor, unspecified; E03.9 Hypothyroidism, unspecified; F32.9 Major depressive disorder, single episode, unspecified; Z90.49 Acquired absence of other specified parts of digestive tract; Z87.891 Personal history of nicotine dependence; Z80.3 Family history of malignant neoplasm of breast; Z79.899 Other long term (current) drug therapy; Z79.890 Hormone replacement therapy; Z79.82 Long term (current) use of aspirin; Z88.5 Allergy status to narcotic agent; Z91.048 Other nonmedicinal substance allergy status; Z87.828 Personal history of other (healed) physical injury and trauma
CPT/HCPCS: 36415; 71046; 71275; 80053; 80061; 81001; 82150; 82550; 83690; 83735; 83880; 84484; 85025; 85379; 85610; 85730; 93005; 94760; 96365; 96366; 96376; 99291

== ENCOUNTER → 2019-05-21 | Outpatient (CLI) | payer OTHER ==
--- NOTE | 2019-05-22 10:48 | MM ---
Reason for exam: screening (asymptomatic). Last mammogram was performed 1 year and 6 months ago. History: Patient is postmenopausal. Family history of breast cancer in grandmother. Took hormonal contraceptives for 3 years beginning at age 18. Took estrogen for 1 year. Physical Findings: A clinical breast exam by your physician is recommended on an annual basis and results should be correlated with mammographic findings. MG Screening Mammo w CAD Bilateral CC and MLO view(s) were taken. Prior study comparison: November 30, 2017, bilateral MG screening mammo w CAD. February 19, 2015, bilateral MG screening mammo w CAD. The breast tissue is heterogeneously dense. This may lower the sensitivity of mammography. No suspicious abnormality. No significant changes when compared with prior studies. ASSESSMENT: Negative, BI-RAD 1 RECOMMENDATION: Routine screening mammogram of both breasts in 1 year.
== END | disposition home or self-care (01) ==
LOC: RADMAMWWP 11:54
PROVIDERS: ATTEND Family Medicine
DX: Z12.31 Encounter for screening mammogram for malignant neoplasm of breast (principal)
CPT/HCPCS: 77067

== ENCOUNTER 2019-07-17 15:26 | Emergency (ER) | payer OTHER ==
[2019-07-17 15:55] VITALS: BP 114/73; PULSE 92; RESP 18; TEMP 97.8
[2019-07-17] MEDS ORDERED: DIPH,PERTUS(ACELL)TETVAC-LF 0.5 ML VIAL IM ONE (16:19)
[2019-07-17] MEDS ORDERED: CEPHALEXIN 500 MG CAP PO STA (16:19)
[2019-07-17] MEDS ORDERED: CEPHALEXIN 500MG STARTER PACK 4 CAP BTL PO STA (16:19)
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
== END 2019-07-17 17:09 | disposition home or self-care (01) ==
LOC: EC 15:26
DX: S61.211A Laceration without foreign body of left index finger without damage to nail, initial encounter (principal); E78.5 Hyperlipidemia, unspecified; I10 Essential (primary) hypertension; M19.90 Unspecified osteoarthritis, unspecified site; E03.9 Hypothyroidism, unspecified; F32.9 Major depressive disorder, single episode, unspecified; Z87.891 Personal history of nicotine dependence; Z88.5 Allergy status to narcotic agent; Z91.048 Other nonmedicinal substance allergy status; Z79.82 Long term (current) use of aspirin; Z79.891 Long term (current) use of opiate analgesic; Z79.899 Other long term (current) drug therapy; Z96.651 Presence of right artificial knee joint; Z23 Encounter for immunization; W26.0XXA Contact with knife, initial encounter; Y93.G1 Activity, food preparation and clean up; Y92.69 Other specified industrial and construction area as the place of occurrence of the external cause; Y99.0 Civilian activity done for income or pay
CPT/HCPCS: 90471; 90715; 99283

== ENCOUNTER 2019-12-29 13:07 | Observation (INO) | payer OTHER ==
[2019-12-29 13:26] LABS: Glucose,Whole Blood 103 mg/dL (75-99)
[2019-12-29] MEDS ORDERED: SODIUM CHLORIDE 0.9% 1,000 ML IV STA (13:32)
[2019-12-29] MEDS ORDERED: LORazepam 2 MG/ML INJ IV STA (13:32)
[2019-12-29] MEDS ORDERED: MECLIZINE 12.5 MG TAB PO STA (13:32)
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
[2019-12-29 14:13] LABS: Basophils % (A) 0 %; Eosinophils % (A) 0 %; HCT 40.5 % (34.0-46.0); HGB 13.9 gm/dL (11.4-16.0); INR 1.1 (<1.2); Lymphocytes # (A) 1.2 k/uL (1.0-4.8); Lymphocytes % (A) 35 %; MCH 28.2 pg (25.0-35.0); MCHC 34.4 g/dL (31.0-37.0); MCV 82.2 fL (80.0-100.0); Monocytes # (A) 0.2 k/uL (0-1.0); Monocytes % (A) 6 %; Neutrophils # (A) 1.9 k/uL (1.3-7.7); Neutrophils % (A) 57 %; Partial Thromboplastin Time 25.7 sec (22.0-30.0); Platelet Count 258 k/uL (150-450); Prothrombin Time 11.1 sec (9.0-12.0); RBC 4.93 m/uL (3.80-5.40); WBC 3.4 k/uL (3.8-10.6)
[2019-12-29 14:28] LABS: Albumin 4.3 g/dL (3.5-5.0); Calcium 9.5 mg/dL (8.4-10.2); Potassium 3.8 mmol/L (3.5-5.1); Total Bilirubin 0.4 mg/dL (0.2-1.3); Total Protein 6.9 g/dL (6.3-8.2)
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
--- NOTE | 2019-12-29 14:31 | XR ---
EXAMINATION TYPE: XR chest 2V DATE OF EXAM: 12/29/2019 COMPARISON: 01/06/2019 HISTORY: Dysrhythmia TECHNIQUE: Frontal and lateral views of the chest are obtained. FINDINGS: There is no focal air space opacity, pleural effusion, or pneumothorax seen. The cardiac silhouette size is within normal limits. The osseous structures are intact. Mild multilevel degener ative change of the spine. IMPRESSION: No acute cardiopulmonary process.
[2019-12-29] MEDS ORDERED: MECLIZINE 25 MG TAB PO PRN (15:17)
[2019-12-29] MEDS ORDERED: ONDANSETRON 4 MG/2 ML VIAL IVP PRN (15:39)
[2019-12-29] MEDS ORDERED: LORazepam 2 MG/ML INJ IV PRN (15:39)
[2019-12-29] MEDS ORDERED: NALOXONE 0.4 MG/ML 1 ML VIAL IV PRN (15:39)
[2019-12-29 16:05] LABS: Appearance,Urine Clear (Clear); Bilirubin,Urine Negative (Negative); Blood,Urine Negative (Negative); Color,Urine Light Yellow; Glucose,Urine (UA) Negative (Negative); Ketones,Urine Negative (Negative); Leukocyte Esterase,Urine Negative (Negative); Nitrite,Urine Negative (Negative); Protein,Urine Negative (Negative); Specific Gravity,Urine 1.006 (1.001-1.035); Urobilinogen,Urine <2.0 mg/dL (<2.0)
[2019-12-29] MEDS: SODIUM CHLORIDE 0.9% 1,000 ML IV SCH (16:31)
[2019-12-29] MEDS ORDERED: TEMAZEPAM 15 MG CAP PO PRN (19:20)
[2019-12-29] MEDS ORDERED: NON FORMULARY DRUG (Omega-3 Fatty Acids/Fish Oil [Fish Oil 1,000 Mg Softgel] 1 CAP) PO SCH (21:00)
[2019-12-29] MEDS ORDERED: ATORVASTATIN 20 MG TAB PO SCH (21:00)
[2019-12-29] MEDS: HEPARIN SODIUM,PORCINE 5,000 UNIT/ML 1 ML VIAL SQ SCH (21:01)
[2019-12-29] MEDS: TOPIRAMATE 25 MG TAB PO SCH (21:01)
[2019-12-29] MEDS: ACETAMINOPHEN TAB 325 MG TAB PO PRN (21:04)
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
[2019-12-30] MEDS: LEVOTHYROXINE 25 MCG TAB PO SCH ×2 (05:02→08:30)
[2019-12-30] MEDS: SODIUM CHLORIDE 0.9% 1,000 ML IV SCH (05:02)
[2019-12-30 06:17] LABS: Basophils % (A) 0 %; Eosinophils % (A) 1 %; HCT 37.3 % (34.0-46.0); HGB 12.3 gm/dL (11.4-16.0); Lymphocytes # (A) 1.5 k/uL (1.0-4.8); Lymphocytes % (A) 47 %; MCH 27.6 pg (25.0-35.0); MCHC 33.1 g/dL (31.0-37.0); MCV 83.5 fL (80.0-100.0); Mean Platelet Volume 7.2; Monocytes # (A) 0.2 k/uL (0-1.0); Monocytes % (A) 6 %; Neutrophils # (A) 1.3 k/uL (1.3-7.7); Neutrophils % (A) 44 %; Platelet Count 211 k/uL (150-450); RBC 4.46 m/uL (3.80-5.40); RDW 13.1 % (11.5-15.5); WBC 3.1 k/uL (3.8-10.6)
[2019-12-30 06:34] LABS: Calcium 8.5 mg/dL (8.4-10.2)
[2019-12-30] MEDS ORDERED: PANTOPRAZOLE 40 MG TABLET PO SCH (07:30)
[2019-12-30 08:09] VITALS: RESP 18; TEMP 97.6
[2019-12-30] MEDS: TOPIRAMATE 25 MG TAB PO SCH (08:26)
[2019-12-30] MEDS: HEPARIN SODIUM,PORCINE 5,000 UNIT/ML 1 ML VIAL SQ SCH (08:26)
[2019-12-30] MEDS ORDERED: ASPIRIN 325 MG TAB PO SCH (09:00)
--- NOTE | 2019-12-30 09:59 | US ---
EXAMINATION TYPE: US carotid duplex BILAT DATE OF EXAM: 12/30/2019 COMPARISON: NONE CLINICAL HISTORY: ? tia. vertigo, no h/o stroke EXAM MEASUREMENTS: RIGHT: Peak Systolic Velocity (PSV) cm/sec ----- Right CCA: 75.6 ----- Right ICA: 87.8 ----- Right ECA: 60.2 ICA/CCA ratio: 1.2 RIGHT: End Diastole cm/sec ----- Right CCA: 25.8 ----- Right ICA: 37.2 ----- Right ECA: 11.1 LEFT: Peak Systolic Velocity (PSV) cm/sec ----- Left CCA: 70.0 ----- Left ICA: 104.7 ----- Left ECA: 72.1 ICA/CCA ratio: 1.5 LEFT: End Diastole cm/sec ----- Left CCA: 23.7 ----- Left ICA: 44.3 ----- Left ECA: 14.4 VERTEBRALS (direction of flow): Right Vertebral: Antegrade Left Vertebral: Antegrade Rhythm: Normal Mild homogeneous plaque with no significant stenosis seen IMPRESSION: 1. Mild atheromatous plaquing without significant flow-limiting stenosis. Criteria for Assigning % of Stenosis / Diameter reduction (Estimation based on the indirect measurements of the internal carotid artery velocities (ICA PSV). 1. Normal (no stenosis)=ICA PSV < 125 cm/s: ratio < 2.0: ICA EDV<40 cm/s. 2. Less than 50% stenosis=ICA PSV < 125 cm/s: ratio < 2.0: ICA EDV<40 cm/s. 3. 50 to 69% stenosis=ICA PSV of 125 to 230 cm/s: ration 2.0 ? 4.0: ICA EDV 40-100 cm/s. 4. Greater than 70% stenosis to near occlusion= ICA PSV > 230 cm/s: ratio > 4.0: ICA EDV > 100 cm/s. 5. Near occlusion= ICA PSV velocities may be low or undetectable: variable ratio and ICA EDV. 6. Total occlusion=unable to detect flow.
[2019-12-30] MEDS: ACETAMINOPHEN TAB 325 MG TAB PO PRN (10:17)
--- NOTE | 2019-12-30 11:00 | ECHOF ---
Referral Reason:? tia MEASUREMENTS -------- HEIGHT: 177.8 cm WEIGHT: 87.1 kg BP: 114/66 RVIDd: 3.6 cm (< 3.3) IVSd: 1.2 cm (0.6 - 1.1) LVIDd: 4.0 cm (3.9 - 5.3) LVPWd: 1.5 cm (0.6 - 1.1) IVSs: 1.7 cm LVIDs: 2.3 cm LVPWs: 1.9 cm LAESV Index (A-L): 26.45 ml/m Ao Diam: 3.1 cm (2.0 - 3.7) AV Cusp: 1.8 cm (1.5 - 2.6) MV EXCURSION: 21.333 mm (> 18.000) MV EF SLOPE: 104 mm/s (70 - 150) EPSS: 0.6 cm MV E Elliot: 0.77 m/s MV DecT: 211 ms MV A Elliot: 0.65 m/s MV E/A Ratio: 1.20 RAP: 5.00 mmHg RVSP: 31.52 mmHg FINDINGS -------- Sinus rhythm. This was a technically adequate study. The left ventricular size is normal. There is mild concentric left ventricular hypertrophy. Overa ll left ventricular systolic function is normal with, an EF between 55 - 60 %. The diastolic fillin g pattern is normal for the age of the patient 7.83. The right ventricle is mildly enlarged. Normal LA size by volume 22+/-6 ml/m2. The right atrium is mildly enlarged. Interatrial and interventricular septum intact. The aortic valve is trileaflet and appears structurally normal. There is no evidence of aortic regu rgitation. There is no evidence of aortic stenosis. [id number] mitral regurgitation is present. Mild tricuspid regurgitation present. There is borderline pulmonary artery hypertension. The righ t ventricular systolic pressure, as measured by Doppler, is 31.52mmHg. There is no pulmonic regurgitation present. The aortic root size is normal. IVC Not well visulized. There is no pericardial effusion. CONCLUSIONS -------- 1. Sinus rhythm. 2. This was a technically adequate study. 3. The left ventricular size is normal. 4. There is mild concentric left ventricular hypertrophy. 5. Overall left ventricular systolic function is normal with, an EF between 55 - 60 %. 6. The diastolic filling pattern is normal for the age of the patient 7.83 7. The right ventricle is mildly enlarged. 8. Normal LA size by volume 22+/-6 ml/m2. 9. The right atrium is mildly enlarged. 10. Interatrial and interventricular septum intact. 11. The aortic valve is trileaflet and appears structurally normal. 12. There is no evidence of aortic regurgitation. 13. There is no evidence of aortic stenosis. 14. Hfpy-dh-klibrlsh mitral regurgitation is present. 15. Mild tricuspid regurgitation present. 16. There is borderline pulmonary artery hypertension. 17. The right ventricular systolic pressure, as measured by Doppler, is 31.52mmHg. 18. There is no pulmonic regurgitation present. 19. The aortic root size is normal. 20. IVC Not well visulized. 21. There is no pericardial effusion. [facility] ADMINISTRATOR: Kathleen Montiel RDCS
[2019-12-30 12:02] VITALS: BP 114/74; PULSE 70
--- NOTE | 2019-12-31 07:09 | DS ---
DISCHARGE SUMMARY DATE OF ADMISSION: 12/29/2019 DATE OF DISCHARGE: 12/30/2019. FINAL DIAGNOSES: 1. Possible element of dehydration. 2. Vertigo. 3. Hyperlipidemia. 4. Essential hypertension. 5. Primary osteoarthritis. 6. Hypothyroid. 7. Depression, not otherwise specified. 8. Occipital neuritis. HOSPITAL COURSE: This is a 59-year-old patient who presented with some dizziness and near syncopal episode. The patient has had chronic arthritis in the neck and chronic vertigo and takes meclizine daily. She did follow up with Dr. Rutledge in the past. She felt the room spinning. Today, patient feels much better. There was no other focal weakness. No change in his speech. No headache. She is going to see and follow up with Dr. Rutledge, her neurologist. The patient did have a head, cervical spine CT nil acute except for some chronic changes. Patient's creatinine did come down with hydration. PHYSICAL EXAMINATION: Temperature 97.6, pulse 76, respiration 18, blood pressure 144/80, pulse ox 99% on room air. LUNGS: Clear. CARDIOVASCULAR: First and second sounds normal. INVESTIGATIONS: White count 3.1, hemoglobin 12.3 potassium, creatinine 1.08. A 2D echocardiogram EF of 55% to 60%, mild to moderate mitral regurgitation. Carotid Doppler no significant stenosis. Head, cervical spine CT chronic cervical spine changes. DISCHARGE MEDICATIONS: 1. Synthroid 25 mcg a day. 2. Fish oil. 3. Trokendi XR 100 mg at bedtime. 4. Lipitor 20 mg at bedtime. 5. Antivert 25 mg t.i.d. p.r.n. 6. Vilazodone 20 mg p.o. daily. 7. Aspirin 81 mg p.o. daily. Follow up with Dr. Jurado in 1 week. Follow up with Dr. Rutledge in 1 week. Care was discussed with the patient. MMODL / IJN: [id number] /
== END 2019-12-30 16:41 | disposition home or self-care (01) ==
LOC: EC 13:07 → 1SOBS 15:39
PROVIDERS: ADMIT Hospitalist; ATTEND Hospitalist
DX: R42 Dizziness and giddiness (principal); N17.9 Acute kidney failure, unspecified; E86.0 Dehydration; E78.5 Hyperlipidemia, unspecified; E03.9 Hypothyroidism, unspecified; I10 Essential (primary) hypertension; M47.812 Spondylosis without myelopathy or radiculopathy, cervical region; M54.81 Occipital neuralgia; M15.9 Polyosteoarthritis, unspecified; F32.9 Major depressive disorder, single episode, unspecified; I34.0 Nonrheumatic mitral (valve) insufficiency; R55 Syncope and collapse; Z87.891 Personal history of nicotine dependence; Z96.651 Presence of right artificial knee joint; Z90.49 Acquired absence of other specified parts of digestive tract; Z98.51 Tubal ligation status; Z98.890 Other specified postprocedural states; Z79.890 Hormone replacement therapy; Z79.82 Long term (current) use of aspirin; Z79.899 Other long term (current) drug therapy; Z88.5 Allergy status to narcotic agent; Z91.048 Other nonmedicinal substance allergy status; Z82.49 Family history of ischemic heart disease and other diseases of the circulatory system; Z83.49 Family history of other endocrine, nutritional and metabolic diseases; Z80.3 Family history of malignant neoplasm of breast; Z82.61 Family history of arthritis
CPT/HCPCS: 96372 ×2; 96361; 96374; 99285; 36415; 93005; 93306; 80053; 80048; 83735; 84484; 85025 ×2; 85610; 85730; 81003; 71046; 93880; 72125; 70450; G0378 ×2; J2060; J1644 ×2

== ENCOUNTER → 2020-04-02 | Outpatient (CLI) | payer OTHER ==
--- NOTE | 2020-04-02 11:45 | MR ---
MRI CERVICAL SPINE: CLINICAL HISTORY: Pain TECHNIQUE: Multiplanar, multisequence imaging of the cervical spine is performed without contrast. COMPARISON: 07/26/2018 FINDINGS: At C2-C3 neural foramina patent. Remaining slight anterolisthesis. No disc herniation or canal stenos is. No foraminal encroachment. At C3-C4 there is uncovertebral joint hypertrophy. There is degenerative disc disease. No canal steno sis or disc herniation. At C4-C5 there is posterior broad-based disc bulging. There is bilateral uncovertebral joint hypertro phy and facet arthropathy with moderate to severe bilateral foraminal encroachment. Severe degenerati ve disc disease. Borderline canal stenosis. C5-C6 there is moderate to severe degenerative disc disease. Bilateral uncovertebral joint hypertroph y with a broad-based central and left paracentral disc protrusion. There is moderate to severe left f oraminal encroachment and mild to moderate right foraminal encroachment. The disc protrusion capped b y spur results in very minimal anterior contact of the spinal cord. At C6-C7 there is severe degenerative disc disease and posterior disc bulging with uncovertebral join t hypertrophy. There is moderate bilateral foraminal encroachment but no canal stenosis. At C7-T1 there is no disc herniation or canal stenosis. No foraminal encroachment. Her graft spinal c ord demonstrates normal signal. Prevertebral soft tissue structures within normal limits. There is no evidence of compression deformity. Subcentimeter areas of abnormal signal involving the thyroid are noted suspicious for thyroid nodules. Cerebellar tonsils lie above the level the foramen magnum. IMPRESSION: 1. Multilevel degenerative disc disease most marked at C4-5, C5-6 and C6-C7. 2. Disc protrusion or broad-based herniation centrally and paracentrally to left extending laterally to left results in severe left-sided foraminal encroachment C5-C6 results in mild anterior contact of the spinal cord without displacement. Finding is mildly progressed from the prior exam. 3. Severe degenerative disc disease and broad-based disc protrusion C4-C5 with borderline canal steno sis and severe bilateral foraminal encroachment. EXAMINATION TYPE: MR brain/cspine wo DATE OF EXAM: 04/02/2020 COMPARISON: NONE HISTORY: Spasmotic torticollis, spondylosis of cervical , vestibular neruonitis TECHNIQUE: T1-weighted sagittal, T2, FLAIR, and diffusion axial, and T2 coronal coronal views of the brain are submitted. FINDINGS: There is no evidence of acute ischemia. The ventricles, basal cisterns, and sulci overlying the conv exities are consistent with the patient's age. There is no mass effect. There are few scattered tin y subcentimeter areas of abnormal signal the white matter which are too small to characterize and non specific. There is a greater prominence of the CSF spaces in the frontal lobes. Partially empty sella turcica.. No cerebellopontine angle mass. Changes of chronic sinusitis noted. Cerebellar tonsils low-lying in p osition without evidence of discrete Chiari malformation. IMPRESSION: 1. No acute intracranial process. 2. There remains very mild nonspecific white matter changes which could been the basis of hypertensio n, remote microvascular ischemia, or less likely demyelinating disease. 2. Low-lying cerebellar tonsils at the level the foramen magnum
== END | disposition home or self-care (01) ==
LOC: RADMRIMAIN 09:40
PROVIDERS: ATTEND Psychiatry & Neurology Neurology
DX: I67.82 Cerebral ischemia (principal); R90.89 Other abnormal findings on diagnostic imaging of central nervous system; M48.02 Spinal stenosis, cervical region; M50.221 Other cervical disc displacement at C4-C5 level; M50.321 Other cervical disc degeneration at C4-C5 level; H81.20 Vestibular neuronitis, unspecified ear; G24.3 Spasmodic torticollis
CPT/HCPCS: 70551; 72141

== ENCOUNTER → 2020-04-14 | Outpatient (CLI) | payer OTHER ==
--- NOTE | 2020-04-14 09:37 | CT ---
EXAMINATION TYPE: CT angio neck DATE OF EXAM: 04/14/2020 HISTORY: spasmatic torticollis, vertigo, STERLING COMPARISON: Carotid ultrasound December 30, 2019 CT DLP: 265 mGycm. Automated Exposure Control for Dose Reduction was Utilized. TECHNIQUE: CTA scan of the neck is performed with IV Contrast, patient injected with 65 mL of Isovue 370, axial images are obtained, coronal and sagittal reformatted images are reviewed. Three-D recons tructed images are created on an independent workstation and reviewed. FINDINGS: Carotid/Vascular Structures: Normal three-vessel origin from aortic arch. Right common carotid artery shows normal origin from right brachiocephalic artery. Mild peripheral calcified plaque left carotid bulb extending into the proximal internal carotid artery. No significant right-sided plaque. No sign ificant stenosis in common or internal carotid arteries bilaterally. Patent external carotid arteries bilaterally without significant plaque or stenosis. Codominant vertebrobasilar system. Vertebral arteries are patent to basilar junction. Other: Some eccentric mild to moderate mucosal thickening posterior inferior left maxillary sinus. Slight levoconvex scoliotic curvature on coronal images in the cervical thoracic spine. Straightening of cervical spine on sagittal images with moderate spurring and disc space narrowing C4-C5 through C 6-C7 levels. Mild underlying emphysematous change. Mild biapical pleural/parenchymal scarring. IMPRESSION: No significant stenosis in common or internal carotid arteries bilaterally
== END | disposition home or self-care (01) ==
LOC: RADCTMAIN 06:45
PROVIDERS: ATTEND Psychiatry & Neurology Neurology
DX: M47.812 Spondylosis without myelopathy or radiculopathy, cervical region (principal); G24.3 Spasmodic torticollis; H81.20 Vestibular neuronitis, unspecified ear
CPT/HCPCS: 70498; Q9967

== ENCOUNTER → 2020-04-21 | Outpatient (CLI) | payer OTHER ==
[2020-04-21 10:53] VITALS: BP 125/70; PULSE 81; RESP 18
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
== END | disposition home or self-care (01) ==
LOC: PNWHC3 10:30
PROVIDERS: ATTEND Specialist
DX: M54.81 Occipital neuralgia (principal); M47.812 Spondylosis without myelopathy or radiculopathy, cervical region; M46.92 Unspecified inflammatory spondylopathy, cervical region; M50.30 Other cervical disc degeneration, unspecified cervical region; E78.5 Hyperlipidemia, unspecified; M19.90 Unspecified osteoarthritis, unspecified site; E07.9 Disorder of thyroid, unspecified; Z96.651 Presence of right artificial knee joint; Z87.891 Personal history of nicotine dependence; Z79.890 Hormone replacement therapy; Z79.891 Long term (current) use of opiate analgesic; Z79.899 Other long term (current) drug therapy; Z79.82 Long term (current) use of aspirin
CPT/HCPCS: 99211

== ENCOUNTER 2020-05-04 09:31 | Day surgery (SDC) | payer OTHER ==
[2020-05-03 11:35] VITALS: BMI 27.2
[~2020-05-04 09:31] MED LIST changes: -ACETAMINOPHEN TAB 500 MG TAB PO ONE; -DEXAMETHASONE SOD PHOSPHATE 10 MG/ML 1 ML VIAL IV ONE; -HYDROmorphone 0.5 MG/0.5 ML SYRINGE IVP PRN; +LACTATED RINGERS 1,000 ML IV SCH; -LIDOCAINE 1% 20 ML VIAL (10MG/ML) FOR IV START INTRADERMA PRN; -MELOXICAM 7.5 MG TAB PO ONE; -MIDAZOLAM (PF) 2 MG/2 ML VIAL IV PRN; -ONDANSETRON 4 MG/2 ML VIAL IVP ONE; -ROPIVACAINE 246.25 MG, EPINEPHrine 0.5 MG, KETOROLAC 30 MG, cloNIDine HCL/PF 80 MCG, WA... MISCELLANE ONE; -SCOPOLAMINE 1.5MG/72HR PATCH TRANSDERM ONE; -TRANEXAMIC ACID 1,000 MG in SODIUM CHLORIDE 0.9% 50 ML IVPB ONE; -ceFAZolin IN SWFI 2 GM/20 ML SYRINGE IVP ONE
[2020-05-04 09:56] VITALS: RESP 18; TEMP 98.3
[2020-05-04] MEDS ORDERED: LIDOCAINE 1% (10MG/ML) FOR IV START INTRADERMA ONE (10:05)
[2020-05-04] MEDS ORDERED: LACTATED RINGERS 1,000 ML IV ONE (10:07)
[2020-05-04] MEDS ORDERED: methylPREDNISolone ACETATE 40 MG/ML 1 ML VIAL ONE (10:45)
[2020-05-04] MEDS ORDERED: ROPIVACAINE 5MG/ML 20ML VIAL ONE (10:45)
[2020-05-04] MEDS ORDERED: fentaNYL (PF) 50 MCG/ML 2 ML AMP ONE (10:45)
[2020-05-04] MEDS ORDERED: MIDAZOLAM 2 MG/2 ML VIAL ONE (10:45)
--- NOTE | 2020-05-04 10:55 | P.PCN ---
Date of Procedure: 05/04/20 Procedure(s) Performed: Preoperative diagnoses= 1- Greater occipital neuralgia. 2-cervical spondylosis with cervical facet arthropathy without myelopathy. 3-cervical degenerative disc disease Postoperative diagnoses= same as preoperative diagnosis. Procedure= Bilateral Greater occipital nerve block Anesthesia= moderate sedation with Versed 2 mg and fentanyl 50 micrograms . Estimated blood loss=minimal. Procedure indication= the patient had a history of severe chronic neck pain ,and headache, diagnosed with occipital neuralgia exam was positive for severe tenderness over the occipital nerve bilaterally, she will be a good candidate occipital nerve block, patient failed conservative management Procedure description= the patient was seen and identified in the preoperative holding area, risks and benefits and alternative of the procedure and possible complications discussed with the patient, and he agreed with the preceding, patient signed the consent, an IV was started, and vital signs were monitored and were stable throughout the procedure, patient was placed in the sitting position or table and the neck area was prepped and draped with a sterile fashion, vital signs were closely monitored during the procedure, 25-gauge needle advanced 1 inch lateral to the occipital protuberance on the right side, at the location of the right occipital nerve , then after negative aspiration for heme and CSF and there was no paresthesia during the injection, 6 ml of Robivacaine 0.5% and 40 mg of Depo-Medrol injected after negative aspiration, the needle removed, and the entire same procedure was repeated for the left Greater occipital nerve. Patient tolerated the procedure well without any complication, The patient returned to supine position after the back was cleaned and a Band- Aid applied, the patient transported to recovery room in stable condition and he was monitored for 30 minutes before he was discharged home and then patient was reexamined before going home and patient was discharged in stable condition and patient will follow up with the pain clinic in a few weeks.
[2020-05-04] MEDS ORDERED: IV FLUID CONTINUATION 1,000 ML IV ONE ×2 (10:58)
[2020-05-04 11:49] VITALS: BP 120/84; PULSE 66
== END 2020-05-04 11:49 | disposition home or self-care (01) ==
LOC: ORPAIN 09:31
PROVIDERS: ATTEND Specialist
DX: G89.29 Other chronic pain (principal); M54.81 Occipital neuralgia; M47.812 Spondylosis without myelopathy or radiculopathy, cervical region; M50.30 Other cervical disc degeneration, unspecified cervical region; E78.5 Hyperlipidemia, unspecified; M19.90 Unspecified osteoarthritis, unspecified site; E07.9 Disorder of thyroid, unspecified; R25.1 Tremor, unspecified; Z88.5 Allergy status to narcotic agent; Z91.09 Other allergy status, other than to drugs and biological substances; Z86.79 Personal history of other diseases of the circulatory system; Z86.69 Personal history of other diseases of the nervous system and sense organs; Z90.49 Acquired absence of other specified parts of digestive tract; Z98.890 Other specified postprocedural states; Z96.651 Presence of right artificial knee joint; Z98.51 Tubal ligation status; Z87.891 Personal history of nicotine dependence; Z79.890 Hormone replacement therapy; Z79.82 Long term (current) use of aspirin; Z79.899 Other long term (current) drug therapy; Z82.49 Family history of ischemic heart disease and other diseases of the circulatory system
CPT/HCPCS: 64405

== ENCOUNTER 2020-05-18 07:44 | Day surgery (SDC) | payer OTHER ==
[2020-05-14 17:30] VITALS: BMI 27.5
[2020-05-18 08:32] VITALS: TEMP 97.4
[2020-05-18 08:39] LABS: Glucose,Whole Blood 91 mg/dL (75-99)
[2020-05-18] MEDS ORDERED: ROPIVACAINE 5MG/ML 20ML VIAL ONE (09:17)
[2020-05-18] MEDS ORDERED: MIDAZOLAM 2 MG/2 ML VIAL ONE (09:17)
[2020-05-18] MEDS ORDERED: TRIAMCINOLONE ACETONIDE 40 MG/ML 1 ML VIAL ONE (09:17)
--- NOTE | 2020-05-18 09:26 | P.PCN ---
Date of Procedure: 05/18/20 Procedure(s) Performed: Pre-operative diagnosis: bilateral occipital neuralgia Post Operative Diagnosis same Procedure: bilateral occipital nerve block ANESTHESIA: IV sedation with Versed 1 mg, sedation time 5 minutes EBL: Minimal PROCEDURE INDICATION: The patient with neck pain and headache secondary to occipital neuralgia unresponsive to conservative treatments. PROCEDURE DESCRIPTION / TECHNIQUE: The patient was seen and identified in the preoperative area. Risks, benefits, complications, and alternatives were discussed with the patient, the patient agreed to proceed with the procedure and signed the consent. IV was started. Vital signs remained stable throughout the procedure. Patient was taken to the OR and time out was completed. The patient was placed in the seated position on the procedure table. The cervical area and bilateral occiptial area were prepped with ChloraPrep. Vital signs were closely monitored during the procedure. The bilateral occiptal ridge was palpated and was then accessed with a 25 G needle. Then after negative aspiration, 3 ml of the block solution containing 5 ml of ropivacaine 0.5% and Kenalog 40 mg was injected to the region of each occipital nerve. Needle was withdrawn intact. Patient tolerated procedure well. No acute complications. Follow-up will be in clinic in 4-6 weeks
[2020-05-18] MEDS ORDERED: IV FLUID CONTINUATION 950 ML IV ONE (09:30)
[2020-05-18 09:45] VITALS: BP 123/83; PULSE 60; RESP 20
== END 2020-05-18 09:59 | disposition home or self-care (01) ==
LOC: ORPAIN 07:44
PROVIDERS: ATTEND Anesthesiology
DX: M54.81 Occipital neuralgia (principal); Z88.5 Allergy status to narcotic agent; Z79.82 Long term (current) use of aspirin
CPT/HCPCS: 64405; J2250; J3301; J2795

== ENCOUNTER → 2020-06-16 | Outpatient (CLI) | payer OTHER ==
[2020-06-16 08:46] VITALS: BP 157/117; PULSE 68; RESP 18; TEMP 97.7
--- NOTE | 2020-06-16 08:54 | P.PAINPG ---
Subjective Progress Note Date: 06/16/20 This is 60 years old female with a chronic history of severe neck pain and headache, she is diagnosed with occipital neuralgia and cervical degenerative disc disease and cervical spondylosis with cervical facet arthropathy, 5 years ago we have done, occipital nerve block which provided her with excellent pain relief, a few months ago she started complaining of severe headache, localized at the base of the skull and radiated to the top of the head, and she had some neck pain with radiation to the upper extremity , she continued to work, she denies any fever or night sweats and no change in bowel movement or urination. We recently performed 2 bilateral occipital nerve blocks. She also was planning on seeing neurosurgery. She is here for follow up today. Patient also occipital nerve blocks helped 100% with her occipital pain. Her concern today she does she is having severe neck pain with radiation into the right shoulder and all the way down to the left middle finger on the anterior aspect of her arm. She describes the pain is numb tingling sharp and stabbing. She also mentions some weakness in both arms. There are no alleviating factors exacerbating factors are generally in the form of movement. 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 Pain is currently 7 out of 10. She did see a neurosurgeon recently, they do consider her a good candidate for cervical spine surgery however her insurance would not cover until next year REVIEW OF ORGAN SYSTEMS: CONSTITUTIONAL: No fevers or chills. No recent weight loss. EYES: denies troubles with vision. HEENT: No difficulties with hearing. No nosebleeds. No difficulty swallowing. RESPIRATORY: Denies any troubles with breathing or dyspnea on exertion. CARDIOVASCULAR: Denies any chest pain, palpitations, or recent heart attacks. GASTROINTESTINAL: Denies fatty food intolerance. Has change in bowel habits and gas bloat. GENITOURINARY: Denies any blood in urine. Has increased urinary frequency. NEUROLOGICAL: No seizure disorders or headaches. Headache MUSCULOSKELETAL: Has neck pain. SKIN:no skin cancer. No rash. PSYCHIATRIC: Denies current depression or suicidal thoughts. ENDOCRINE: Denies current thyroid disorders. Denies any blood sugar glucose intolerance. HEME/LYMPHATIC: Denies any lumps and bumps around the neck. History of deep venous thrombosis. ALLERGY/IMMUNOLOGY: No immunoglobulin therapy. No immune deficiencies. BREAST: Denies current breast lumps, pain or nipple discharge. Physical Examinations : Constitutiona : Cooperative , not in acute distress . HEENT : nech : supple , no Lymphadenopathy , normal thyroid size . : eyes no ptosis , no icterus, no photophobia . neurologic : Cranial nerve II to XII intact , no focal neurological deffecit . psychatric : alert , oriented X 3 , appropriate affect , intact judgment and insight . Lymphatic : no Lymphadenopathy . musculoskeltal : Cervical Spine motor stregnth in the deltoid and biceps, 4/5 right side , 3/5 Left side motor stregnth biceps and the wrist extensors normal right side ,normal left side . motor stregnth in the triceps muscle . 4/5 Right side , 3/5 Left side deep tendon reflexes= normal at the biceps , normal at Brachioradialis , normal at triceps. cervical facet loading test: Positive Bilaterally Spurling test= positive bilaterally. Neck distraction test= positive bilaterally. Results Comments: MRI of the cervical spine multilevel multilevel degenerative disc disease at C4- C5, C5-C6 and C6-C7. There is disc protrusion extending paracentrally into the left at C5-C6 with mild anterior contact the spinal cord without displacement. There is severe degenerative disc disease and broad-based disc protrusion C4-C5 with borderline canal stenosis.. Assessment and Plan Plan: Assessment and plan=1-bilaterally occipital neuralgia. 2-cervical spondylosis with cervical facet arthropathy without myelopathy. 3-cervical degenerative disc disease. Patient had great relief from occipital nerve blocks. However she is now having neck pain with left-sided radiculopathy in the C7 distribution. Patient could benefit from a C7-T1 interlaminar epidural steroid injection. We will schedule her for this injection with a left paramedian approach. I did educate her that this injection likely won't help with her weakness and given that she is having weakness she would likely need surgery in the future. Ultimately given the severity of her degenerative disc disease and arthritis in her cervical spine, and he feel that she'll eventually need surgical intervention. However given that her insurance would not cover the surgery until next year if we can perform procedures for her to try to help with pain management. If this epidural does not help her, we can consider cervical medial branch workup given that she does have severe uncovertebral joint hypertrophy as well MRI Smoking Status Former smoker Blood Pressure 125/70 Pain Intensity [Lower 6 Occipital] Scale Used Numeric (1 - 10) Hx Alcohol Use (MH) Yes l PQRS Measure Charge Sheet Measure #226: Tobacco Use: Screen & Cessation Intervention: Pt not a tobacco user Measure #111: Pneumonia Vaccination: Pneumococcal vaccine NOT administered or previously given Measure #47: Advance Care Plan: Advance care planning discussed & documented, pt chose/unable to give Measure #412: Opioid Treatment Agreement: No documentation of signed opioid treatment agreement Measure #408: Opioid Therapy Follow-up Evaluation: Patient had NO f/u eval minimum every 3 months during opioid therapy Measure #131: Pain Assessment & Follow-up: Pain positive & plan documented, Follow-up scheduled PQRS Narrative: Smoking Status Former smoker Pain Intensity [Neck] 8 Scale Used Numeric (1 - 10) Hx Alcohol Use (MH) Yes: 2 DRINKS DAILY Home Medications: Ambulatory Orders Levothyroxine Sodium [Synthroid] 25 mcg PO DAILY 03/04/15 [place]-3 Fatty Acids/Fish Oil [Fish Oil 1,000 mg Softgel] 1,000 mg PO HS 08/20/15 Topiramate [Trokendi Xr] 100 mg PO HS 08/20/15 Atorvastatin [Lipitor] 20 mg PO HS 10/23/18 Vilazodone HCl [Viibryd] 20 mg PO DAILY 12/29/19 Acetaminophen [Tylenol Arthritis] 650 mg PO TID 04/16/20 Aspirin 325 mg PO DAILY 04/16/20 Ergocalciferol [Vitamin D2] 50,000 unit PO Q30D 04/16/20 Meclizine [Antivert] 12.5 mg PO DIRECTED PRN 05/03/20 Controlled Substance Measures - Controlled Substance Measures Is patient prescribed a controlled substance at discharge?: No
== END | disposition home or self-care (01) ==
LOC: PNWHC3 08:29
PROVIDERS: ATTEND Anesthesiology
DX: M50.121 Cervical disc disorder at C4-C5 level with radiculopathy (principal); M47.22 Other spondylosis with radiculopathy, cervical region; M54.81 Occipital neuralgia; Z98.890 Other specified postprocedural states; Z87.891 Personal history of nicotine dependence; Z79.890 Hormone replacement therapy; Z79.1 Long term (current) use of non-steroidal anti-inflammatories (NSAID); Z79.899 Other long term (current) drug therapy
CPT/HCPCS: 99211

== ENCOUNTER 2020-07-01 09:22 | Day surgery (SDC) | payer OTHER ==
[2020-06-29 13:20] VITALS: BMI 27.6
[2020-07-01 10:24] VITALS: RESP 16; TEMP 98
[2020-07-01] MEDS ORDERED: LIDOCAINE 1% (10MG/ML) FOR IV START INTRADERMA ONE (10:37)
[2020-07-01] MEDS ORDERED: fentaNYL (PF) 50 MCG/ML 2 ML AMP ONE (10:46)
[2020-07-01] MEDS ORDERED: SODIUM CHLORIDE 0.9% (PF) 10 ML VIAL ONE (10:46)
[2020-07-01] MEDS ORDERED: IOPAMIDOL M200 10 ML VIAL ONE (10:46)
[2020-07-01] MEDS ORDERED: MIDAZOLAM 2 MG/2 ML VIAL ONE (10:46)
[2020-07-01] MEDS ORDERED: DEXAMETHASONE SOD PHOSPHATE 10 MG/ML 1 ML VIAL ONE (10:46)
--- NOTE | 2020-07-01 11:01 | P.PCN ---
Date of Procedure: 07/01/20 Procedure(s) Performed: . PROCEDURE 1. Cervical epidural steroid injection under fluoroscopic guidance, C7-T1 (fluoroscopy images available in the radiology department ) 2. Cervical epidurogram. PREOPERATIVE DIAGNOSIS: 1- Cervical Degenerative Disc Diseases 2-cervical spondylosis with cervical Facet arthropathy without myelopathy POSTOPERATIVE DIAGNOSIS: : 1- Cervical Degenerative Disc Diseases , 2-cervical spondylosis with cervical Facet arthropathy without myelopathy ANESTHESIA: Local anesthesia with lidocaine 1 % , and moderate sedation, with Versed 1mg and Fentanyl 50 mcg. EBL 0 PROCEDURE INDICATION: The patient with neck pain and radiculitis unresponsive to conservative treatment consents for procedure. PROCEDURE DESCRIPTION / TECHNIQUE: The patient was seen and identified in the preoperative area. Risks, benefits, complications, including but not limited to infections ,bleeding , allergic reactions to the medications ,and not complete pain releife, and alternatives were discussed with the patient, the patient agreed to proceed with the procedure and signed the consent. Patient was taken to the OR and time out was completed. The patient was placed in the prone position on the procedure table. A pillow was placed under the patients chest to increase the cervical interlaminar space. The cervical area was prepped and draped in the usual sterile fashion. Vital signs were closely monitored during the procedure. Conscious sedation was used during the procedure to decrease patients anxiety. Using anterior-posterior fluoroscopy, the C7-T1 interlaminar space was identified and the skin over this site was marked and then infiltrated with 1% lidocaine subcutaneously. Subsequently, a 20-gauge 3-1/2-inch Tuohy epidural needle was inserted and advanced toward the epidural space by means of the ``hanging-drop technique and guided by AP and lateral fluoroscopy. The correct needle position in the epidural space was verified with the injection of 2 mL of the water soluble contrast dye Isovue-200 and observing an excellent epidurogram with the epidural spread of the dye, after negative aspiration for blood and CSF and in the absence of paresthesias. Again after negative aspiration, mixture containing 20 mg Dexamethasone and 2 ml of preservative- free normal saline injected and a washout of epidurogram was seen. Needle was withdrawn intact, skin was cleansed, and bandages were applied. Complications= none. Disposition= patient was placed in supine position and transferred to the recovery room area in stable condition and there was no evidence of upper or lower extremity motor or sensory deficit after the procedure patient was discharged from recovery room after discharge criteria met and home discharge instructions was given by the staff and patient will follow with the pain clinic in 2-4 weeks
[2020-07-01] MEDS ORDERED: IV FLUID CONTINUATION 1,000 ML IV ONE (11:05)
[2020-07-01 11:21] VITALS: BP 137/83; PULSE 60
--- NOTE | 2020-07-01 14:28 | FL ---
EXAMINATION TYPE: FL guided pain mgmt statistic DATE OF EXAM: 07/01/2020 FLUOROSCOPY Fluoroscopy time of 10 seconds was used during cervical epidural injection. 1 image/s document/s the procedure.
== END 2020-07-01 11:34 ==
LOC: ORPAIN 09:22
PROVIDERS: ATTEND Specialist
DX: M50.10 Cervical disc disorder with radiculopathy, unspecified cervical region (principal); M47.22 Other spondylosis with radiculopathy, cervical region; Z79.82 Long term (current) use of aspirin; Z91.09 Other allergy status, other than to drugs and biological substances; Z88.5 Allergy status to narcotic agent; Z78.0 Asymptomatic menopausal state
CPT/HCPCS: 62321; J2250; J1100; J3010; Q9966

== ENCOUNTER 2020-07-20 06:50 | Day surgery (SDC) | payer OTHER ==
[2020-07-19 10:03] VITALS: BMI 27.2
[2020-07-20 07:13] VITALS: RESP 18; TEMP 97.6
[2020-07-20] MEDS ORDERED: LACTATED RINGERS 1,000 ML IV ONE ×2 (07:20)
[2020-07-20] MEDS ORDERED: MIDAZOLAM 2 MG/2 ML VIAL ONE (07:27)
[2020-07-20] MEDS ORDERED: SODIUM CHLORIDE 0.9% (PF) 10 ML VIAL ONE (07:27)
[2020-07-20] MEDS ORDERED: IOPAMIDOL M200 10 ML VIAL ONE (07:27)
[2020-07-20] MEDS ORDERED: DEXAMETHASONE SOD PHOSPHATE 10 MG/ML 1 ML VIAL ONE (07:27)
[2020-07-20] MEDS ORDERED: fentaNYL (PF) 50 MCG/ML 2 ML AMP ONE (07:27)
--- NOTE | 2020-07-20 07:44 | P.PCN ---
Date of Procedure: 07/20/20 Description of Procedure: Diagnosis: Cervical radiculopathy Cervical degenerative disc disease POSTOPERATIVE DIAGNOSIS: Diagnoses: Cervical radiculopathy Cervical degenerative disc disease PROCEDURE Cervical Epidural steroid injection under fluoroscopic guidance at the C7-T1 interspace using left paramedian approach Cervical epidurogram ANESTHESIA: Local with 1% lidocaine 3 ml and IV sedation with Versed and fentanyl, sedation time 12 min Fluoroscopy was used for the procedure and images were saved in the radiology portion of the chart. EBL: Minimal PROCEDURE INDICATION: The patient presents with cervical radicular symptoms unresponsive to conservative treatment. This is the second cervical epidural steroid injection. PROCEDURE DESCRIPTION / TECHNIQUE: The patient was seen and identified in the preoperative area. Risks, benefits, complications including but not limited to infections ,bleeding ,allergic reaction to the medications ,nerve damage and incomplete pain relief, and alternatives were discussed with the patient. The patient agreed to proceed with the procedure and signed the consent. IV was started, and vital signs were stable. Patient was taken to the OR and time out was completed. The patient was placed in the prone position on procedure table and a pillow was placed under the chest area. The cervical area was prepped and draped in the usual sterile fashion. Conscious sedation was used during the procedure to decrease patients anxiety. Vital signs was monitored during the entire procedure. Using anterior-posterior fluoroscopy, the C7-T1 interlaminar space was identified and the skin over this site was marked and then infiltrated with 1% lidocaine subcutaneously. Subsequently, a 20-gauge Tuohy epidural needle was inserted and advanced toward the epidural space using the loss of resistance technique and guided by AP and 50 oblique fluoroscopy. The correct needle position in the epidural space was verified. After negative aspiration for blood and CSF and in the absence of paresthesias, Isovue 200 2 mL's was injected under live fluoroscopy with good epidural spread. After negative aspiration, a 3 ml mixture containing 10 mg of dexamethasone, 2 mL of preservative free normal saline and 1 mL of 1% lidocaine was injected. Needle was withdrawn intact, skin was cleansed, and bandages were applied. COMPLICATIONS: None DISPOSITION / PLANS: The patient was placed in a supine position and transferred to the recovery area in a stable condition for observation. There was no evidence of lower extremity motor or sensory deficit after the procedure. Patient was discharged from the recovery room after meeting discharge criteria. Home discharge instructions were given to the patient by the staff. The patient will be scheduled a follow up in the clinic in 2-4 weeks.
[2020-07-20] MEDS ORDERED: IV FLUID CONTINUATION 700 ML IV ONE (07:55)
[2020-07-20] MEDS ORDERED: LACTATED RINGERS 1,000 ML IV SCH (07:58)
[2020-07-20 08:09] VITALS: BP 120/52; PULSE 63
--- NOTE | 2020-07-20 08:59 | FL ---
Fluoroscopy INDICATION: Pain FINDINGS: Fluoroscopy time: 11 seconds. Images obtained: 2. IMPRESSIONS: 1. Documentation of fluoroscopy.
== END 2020-07-20 08:27 | disposition home or self-care (01) ==
LOC: ORPAIN 06:50
PROVIDERS: ATTEND Anesthesiology
DX: M50.10 Cervical disc disorder with radiculopathy, unspecified cervical region (principal); Z88.5 Allergy status to narcotic agent; Z91.09 Other allergy status, other than to drugs and biological substances; Z78.0 Asymptomatic menopausal state; Z79.82 Long term (current) use of aspirin
CPT/HCPCS: 62321; J2250; J1100; J3010; Q9966; 99152

== ENCOUNTER → 2020-08-18 | Outpatient (CLI) | payer OTHER ==
[2020-08-18 08:22] VITALS: BP 133/69; PULSE 74; RESP 18; TEMP 97.7
--- NOTE | 2020-08-18 08:42 | P.PN ---
Subjective Progress Note Date: 08/18/20 This is 60 years old female with a chronic history of severe neck pain and headache, she is diagnosed with occipital neuralgia and cervical degenerative disc disease and cervical spondylosis with cervical facet arthropathy, previously we have done, occipital nerve block which provided her with excellent pain relief, a few months ago she started complaining of severe headache, localized at the base of the skull and radiated to the top of the head, and she had some neck pain with radiation to the upper extremity , and recently we did cervical epidural steroid injections 2 , she reported that her radicular symptoms improved , but continued to have severe neck pain with any neck movement , she denies any motor or sensory deficit ,she continued to work, she denies any fever or night sweats and no change in bowel movement or urination Objective - Vital Signs Vital signs: Vital Signs Temp 97.7 F 08/18/20 08:16 Pulse 74 08/18/20 08:16 Resp 18 08/18/20 08:16 BP 133/69 08/18/20 08:16 Pulse Ox 100 08/18/20 08:16 - Constitutional Constitutional Comment(s): Constitutiona : Cooperative , not in acute distress . HEENT : nech : supple , no Lymphadenopathy , normal thyroid size . : eyes no ptosis , no icterus, no photophobia . neurologic : Cranial nerve II to XII intact , no focal neurological deffecit . psychatric : alert , oriented X 3 , appropriate affect , intact judgment and insight . Lymphatic : no Lymphadenopathy . musculoskeltal : Cervical Spine motor stregnth in the deltoid and biceps, normal right side , normal Left side motor stregnth biceps and the wrist extensors normal right side ,normal left side . motor stregnth in the triceps muscle . normal Right side , normal Left side deep tendon reflexes= normal at the biceps , normal at Brachioradialis , normal at triceps. cervical facet loading test: Positive Bilaterally Spurling test= positive bilaterally. Neck distraction test= positive bilaterally. Rebecca sign= positive bilaterally. Positive tenderness at the occipital nerve location bilaterally Lumber spine moter stegnth lower extremities ,thigh and legs 5/5 Right side , 5/5 Left side Results MRI of the cervical spine multilevel cervical degenerative disc disease and multilevel cervical facet arthropathy Assessment and Plan Plan: Assessment and plan 1-cervical spondylosis with cervical facet arthropathy without myelopathy. 2-cervical degenerative disc disease. Patient continued to have severe neck pain after cervical epidural steroid injections 2 Patient will be good candidate to have diagnostic medial branch block cervical area at C3, C4 , C5, bilaterally Benefits positive will proceed with RFA Time with Patient: less than 30 PQRS Measure Charge Sheet Measure #130: Documentation of Current Meds in Medical Chart: Patient's medications documented in chart Measure #226: Tobacco Use: Screen & Cessation Intervention: Pt screened for tobacco use AND intervention given Measure #111: Pneumonia Vaccination: Pneumococcal vaccine NOT administered or previously given Measure #47: Advance Care Plan: Advance care planning discussed & documented, pt chose/unable to give Measure #412: Opioid Treatment Agreement: No documentation of signed opioid treatment agreement Measure #408: Opioid Therapy Follow-up Evaluation: Patient had NO f/u eval minimum every 3 months during opioid therapy Measure #317: Preventitive Care & Scrn High Bld Press & F/U: Normal blood pressure, f/u not required Measure #128: Body Mass Index (BMI) Screening & Follow-up: BMI documented ABOVE normal parameters - f/u documented Measure #131: Pain Assessment & Follow-up: Pain positive & plan documented, Follow-up scheduled Measure #431: Unhealthy Alcohol Use Preventative Care & Scrn: Patient not identified as an unhealthy alcohol user Time with Patient: Less than 30
== END | disposition home or self-care (01) ==
LOC: PNWHC3 08:05
PROVIDERS: ATTEND Specialist
DX: M50.30 Other cervical disc degeneration, unspecified cervical region (principal); M47.812 Spondylosis without myelopathy or radiculopathy, cervical region
CPT/HCPCS: 99211

== ENCOUNTER → 2020-09-03 | Day surgery (SDC) | payer OTHER ==
[2020-09-02 11:52] VITALS: BMI 27.9
[~2020-09-03] MED LIST changes: +IV FLUID CONTINUATION 1,000 ML IV ONE; +LIDOCAINE 1% (10MG/ML) FOR IV START INTRADERMA ONE; +MIDAZOLAM 2 MG/2 ML VIAL ONE; +PROPOFOL 10 MG/ML 20 ML VIAL IV ONE; +ROPIVACAINE 5MG/ML 20ML VIAL ONE; +methylPREDNISolone ACETATE 40 MG/ML 1 ML VIAL ONE
[2020-09-03 08:20] VITALS: RESP 16; TEMP 97.1
--- NOTE | 2020-09-03 10:09 | P.PCN ---
Date of Procedure: 09/03/20 Procedure(s) Performed: PREOPERATIVE DIAGNOSIS: Cervical Spondylosis with Facet Arthropathy.without myelopathy POSTOPERATIVE DIAGNOSIS: Cervical Spondylosis Facet Arthropathy. Without myelopathy. PROCEDURES: Diagnostic bilateral C3, C4 , C5 medial branch blocks, with fluoroscopic guidance (fluoroscopy images available in radiology department ) ( to target the facet joint at C3-4 , C4- 5 ) ANESTHESIA: Monitored anesthesia care by anesthesia department EBL: Minimal PROCEDURE INDICATION: The patient with neck pain secondary to cervical arthropathy unresponsive to more conservative treatments. PROCEDURE DESCRIPTION / TECHNIQUE: The patient was seen and identified in the preoperative area. Risks, benefits, complications, and alternatives were discussed with the patient, the patient agreed to proceed with the procedure and signed the consent. IV was started. Vital signs remained stable throughout the procedure. Patient was taken to the OR and time out was completed. The patient was placed in the prone position on the procedure table. A pillow was placed under the patients chest to increase the cervical interlaminar space. The cervical area was prepped and draped in the usual sterile fashion. Critical pause was taken. Vital signs were closely monitored during the procedure. Conscious sedation was used during the procedure to decrease patients anxiety. Using cross-table lateral fluoroscopy, the centroid of the trapezoid of right C3, C4 , C5 , was identified, marked, and localized with 1% lidocaine 1 ml at each level for skin and Sub Q infiltrations . Subsequently, a 22 G 3 spinal needle was advanced guided by fluoroscopy to the centroid of the trapezoid of Right C3, C4 , C5,. [place] tip position was confirmed at the centroid of the trapezoids of Right C3 , C4 , C5 with anteroposterior fluoroscopy. Subsequently, 1.5 ml of preservative-free Ropivacaine 0.5% mixed with Depo- Medrol 20 mg and half ml of the mixture was injected after negative aspiration for blood and CSF. [place] was then removed intact the same procedure was repeated at the left C3 , C4 , C5 , levels. COMPLICATIONS: No acute complications. DISPOSITION / PLANS: The patient was placed in a supine position and transferred to the recovery area in a stable condition for observation and was discharged from the recovery room after meeting discharge criteria. Home discharge instructions given to the patient by the staff. The patient was reexamined prior to discharge. The patient will schedule a follow up in the clinic in 2-4 weeks.
--- NOTE | 2020-09-03 10:20 | FL ---
Fluoroscopy INDICATION: Pain FINDINGS: Fluoroscopy time: 19 seconds. Images obtained: 3. IMPRESSIONS: 1. Documentation of fluoroscopy.
[2020-09-03 10:33] VITALS: BP 133/72; PULSE 63
== END ==
LOC: ORPAIN 07:51
PROVIDERS: ATTEND Specialist
DX: M47.812 Spondylosis without myelopathy or radiculopathy, cervical region (principal); M54.81 Occipital neuralgia; E03.9 Hypothyroidism, unspecified; I25.10 Atherosclerotic heart disease of native coronary artery without angina pectoris; Z91.09 Other allergy status, other than to drugs and biological substances; Z88.5 Allergy status to narcotic agent; Z79.890 Hormone replacement therapy; Z79.899 Other long term (current) drug therapy; Z98.890 Other specified postprocedural states; Z98.51 Tubal ligation status; Z78.0 Asymptomatic menopausal state
CPT/HCPCS: 64490; 64491; J2250; J1030; J2704; J2795; 99152

== ENCOUNTER → 2020-09-15 | Day surgery (SDC) | payer OTHER ==
[2020-09-14 08:35] VITALS: BMI 27.9
[~2020-09-15] MED LIST changes: -IV FLUID CONTINUATION 1,000 ML IV ONE; +LIDOCAINE 1% INJ 10MG/ML (20 ML MDV) ONE; -MIDAZOLAM 2 MG/2 ML VIAL ONE; -ROPIVACAINE 5MG/ML 20ML VIAL ONE; -methylPREDNISolone ACETATE 40 MG/ML 1 ML VIAL ONE
--- NOTE | 2020-09-15 11:28 | P.PCN ---
Date of Procedure: 09/15/20 Procedure(s) Performed: BRIEF HISTORY: Patient is a 60-year-old pleasant white female scheduled for an elective colonoscopy as a part of evaluation of prior history of colon polyps. Last colonoscopy was 5 years ago. PROCEDURE PERFORMED: Colonoscopy with snare polypectomy. PREOPERATIVE DIAGNOSIS: History of colon polyps. IV sedation per Anesthesia. PROCEDURE: After informed consent was obtained, the patient, was brought into the endoscopy unit. IV sedation was administered by Anesthesia under continuous monitoring. Digital rectal examination was normal. Initially the Olympus CF-160 flexible video colonoscope was then inserted in the rectum, gradually advanced into the cecum with moderate difficulty. Careful examination was performed as the scope was gradually being withdrawn. Ileocecal valve and the appendiceal orifice were visualized and appeared normal. Prep was excellent. Mucosa of the cecum, ascending colon, transverse colon, descending colon, sigmoid colon, and rectum appeared normal. In the mid rectum there was a 7-8 mm flat polyp that was removed by snare polypectomy. Scattered left-sided diverticulosis seen. Retroflexion was performed in the rectum and no lesions were seen. The patient tolerated the procedure well. IMPRESSION: 7-8 mm flat rectal polyp status post polypectomy Scattered sigmoid diverticulosis RECOMMENDATIONS: Findings of this examination were discussed with the patient as well as her family. She was advised to follow with the biopsy results. If the biopsy shows an adenoma she can have a repeat colonoscopy in 5.
[2020-09-15 11:35] VITALS: RESP 17
[2020-09-15 11:49] VITALS: BP 118/58; PULSE 56
== END ==
LOC: ORWHC2ENDO 09:54
PROVIDERS: ATTEND Internal Medicine Gastroenterology
DX: Z12.11 Encounter for screening for malignant neoplasm of colon (principal); K62.1 Rectal polyp; K57.30 Diverticulosis of large intestine without perforation or abscess without bleeding; Z86.010 Personal history of colon polyps; I10 Essential (primary) hypertension; E78.5 Hyperlipidemia, unspecified; M19.90 Unspecified osteoarthritis, unspecified site; Z88.5 Allergy status to narcotic agent; Z91.09 Other allergy status, other than to drugs and biological substances; Z87.891 Personal history of nicotine dependence; Z79.82 Long term (current) use of aspirin; Z79.899 Other long term (current) drug therapy
CPT/HCPCS: 88305; 45385; J2001; J2704

== ENCOUNTER 2020-10-01 06:57 | Day surgery (SDC) | payer OTHER ==
[2020-09-30 10:40] VITALS: BMI 27.6
[~2020-10-01 06:57] MED LIST changes: -LIDOCAINE 1% (10MG/ML) FOR IV START INTRADERMA ONE; -LIDOCAINE 1% INJ 10MG/ML (20 ML MDV) ONE; -PROPOFOL 10 MG/ML 20 ML VIAL IV ONE
[2020-10-01 07:27] VITALS: RESP 16; TEMP 96.9
[2020-10-01] MEDS ORDERED: LACTATED RINGERS 1,000 ML IV ONE (07:27)
[2020-10-01] MEDS ORDERED: DEXAMETHASONE SOD PHOSPHATE 10 MG/ML 1 ML VIAL ONE (07:55)
[2020-10-01] MEDS ORDERED: MIDAZOLAM 2 MG/2 ML VIAL ONE (07:55)
[2020-10-01] MEDS ORDERED: ROPIVACAINE 5MG/ML 20ML VIAL ONE (07:55)
--- NOTE | 2020-10-01 08:17 | P.PCN ---
Date of Procedure: 10/01/20 Surgeon: Lyndsey Redman Pathology: none sent Condition: stable Disposition: PACU Description of Procedure: PREOPERATIVE DIAGNOSIS: Cervical Spondylosis with Facet Arthropathy.without myelopathy POSTOPERATIVE DIAGNOSIS: Cervical Spondylosis Facet Arthropathy. Without myelopathy. PROCEDURES: Diagnostic Left C3, C4 , C5 medial branch blocks, with fluoroscopic guidance (fluoroscopy images available in radiology department ) ( to target the facet joint at C3-4 , C4- 5 ) ANESTHESIA: Monitored anesthesia care by anesthesia department EBL: Minimal PROCEDURE INDICATION: The patient with neck pain secondary to cervical arthropathy unresponsive to more conservative treatments. Most of the patient's pain has been on the left side and rarely on the right side and that's why I changed the procedure to do the left side only instead of bilaterally. The patient also may benefit from a third occipital nerve block for her occipital headache in the future. PROCEDURE DESCRIPTION / TECHNIQUE: The patient was seen and identified in the preoperative area. Risks, benefits, complications, and alternatives were discussed with the patient, the patient agreed to proceed with the procedure and signed the consent. IV was started. Vital signs remained stable throughout the procedure. Patient was taken to the OR and time out was completed. The patient was placed in the supine position on the procedure table. The cervical area was prepped and draped in the usual sterile fashion. Critical pause was taken. Vital signs were closely monitored during the procedure. Conscious sedation was used during the procedure to decrease patients anxiety. Using cross-table lateral fluoroscopy, the centroid of the trapezoid of left C3, C4 , C5 , was identified, marked, and localized with 1% lidocaine 1 ml at each level for skin and Sub Q infiltrations . Subsequently, a 25 G 3 spinal needle was advanced guided by fluoroscopy to the center of the trapezoid of left C3, C4 , C5,. [place] tip position was confirmed at the center of the trapezoids of left C3 , C4 , C5 with anteroposterior fluoroscopy. Subsequently, 1.5 ml of preservative-free Ropivacaine 0.5% mixed with Decadron 10 mg and half ml of the mixture was injected after negative aspiration for blood and CSF. [place] was then removed intact . COMPLICATIONS: No acute complications. DISPOSITION / PLANS: The patient was placed in a supine position and transferred to the recovery area in a stable condition for observation and was discharged from the recovery room after meeting discharge criteria. Home discharge instructions given to the patient by the staff. The patient was reexamined prior to discharge. The patient will schedule a follow up in the clinic in 2-4 weeks.
[2020-10-01] MEDS ORDERED: IV FLUID CONTINUATION 600 ML IV ONE (08:23)
--- NOTE | 2020-10-01 08:30 | FL ---
EXAMINATION TYPE: FL guided pain mgmt statistic DATE OF EXAM: 10/01/2020 CLINICAL HISTORY: Neck pain. TECHNIQUE: Fluoroscopy. COMPARISON: None. FINDINGS: Fluoroscopic guidance was provided during pain relief procedure performed by Dr. Redman . A total of 8 seconds of fluoroscopic time was utilized during the procedure and for spot images are acquired. Images acquired shows needle localization in the upper to mid cervical spine. IMPRESSION: As Above.
[2020-10-01 08:38] VITALS: BP 118/81; PULSE 65
== END 2020-10-01 08:56 | disposition home or self-care (01) ==
LOC: ORPAIN 06:57
PROVIDERS: ATTEND Anesthesiology
DX: M47.812 Spondylosis without myelopathy or radiculopathy, cervical region (principal); E07.9 Disorder of thyroid, unspecified; F32.9 Major depressive disorder, single episode, unspecified; Z88.5 Allergy status to narcotic agent; Z91.09 Other allergy status, other than to drugs and biological substances; Z79.82 Long term (current) use of aspirin; Z78.0 Asymptomatic menopausal state
CPT/HCPCS: 64490; 64491; J2250; J1100; J2795; 99152

== ENCOUNTER → 2020-10-13 | Outpatient (CLI) | payer OTHER ==
[2020-10-13 14:15] VITALS: BP 145/84; PULSE 80; RESP 18; TEMP 97.4
--- NOTE | 2020-10-13 14:49 | P.PN ---
Subjective Progress Note Date: 10/13/20 This is follow-up visit for this 60 years old female with a chronic history of severe neck pain she is diagnosed with cervical spondylosis with cervical facet arthropathy, recently we have done diagnostic medial branch block cervical area at C3, C4, C5, RVS before the block was 8/10 dropped to 2/10, and she gets similar result after the second diagnostic block, she denies any motor or sensory deficit, she had no fever or night sweats Objective - Vital Signs Vital signs: Vital Signs Temp 97.4 F L 10/13/20 14:12 Pulse 80 10/13/20 14:12 Resp 18 10/13/20 14:12 BP 145/84 10/13/20 14:12 Pulse Ox 99 10/13/20 14:12 - Exam Physical Examinations : -Constitutiona : Cooperative , not in acute distress . -HEENT : nech : supple , no Lymphadenopathy , normal thyroid size . : eyes : no ptosis , no icterus, no photophobia . . - neurologic : Cranial nerve II to XII intact , no focal neurological deffecit . -psychatric : alert , oriented X 3 , appropriate affect , intact judgment and insight . -Lymphatic : no Lymphadenopathy . - musculoskeltal : Cervical Spine motor stregnth in the deltoid and biceps, normal right side , normal Left side motor stregnth biceps and the wrist extensors normal right side ,normal left side . motor stregnth in the triceps muscle . normal Right side , normal Left side deep tendon reflexes normal at the biceps , normal at Brachioradialis , normal at triceps. cervical facet loading test= Positive Bilaterally Spurling test= positive bilaterally. Neck distraction test= positive bilaterally. Rebecca sign= positive bilaterally. Lumber spine moter stegnth lower extremities ,thigh and legs 5/5 Right side , 5/5 Left side Assessment and Plan Plan: MRI of the cervical spine multilevel cervical degenerative disc disease and multilevel cervical facet arthropathy Assessment and plan 1-cervical spondylosis with cervical facet arthropathy without myelopathy. 2-cervical degenerative disc disease. Patient will be good candidate to have RFA medial branch block cervical area at left C3, C4 , C5, bilaterally Time with Patient: less than 30 - PQRS measures = - Patient's medications are documented in the chart. -Tobacco use is negative and counseling.Given. -Patient's has not received pneumococcal vaccine. -Advanced care planning discussed, patient not eligible. -Opiate contract signed. -Pain positive and follow-up visit/procedure is scheduled. -Patient's blood pressure measured [145/97 ] , and documented in the record ,and patient will follow up with the primary care. -Patient's weight was measured and body mass index [27.7 ] above the normal limits and counseling was done. and patient instructed to follow-up with the primary care physician. -Patient was not identified as an unhealthy alcohol user Time with Patient: Less than 30
== END | disposition home or self-care (01) ==
LOC: PNWHC3 13:51
PROVIDERS: ATTEND Specialist
DX: M47.812 Spondylosis without myelopathy or radiculopathy, cervical region (principal); M50.30 Other cervical disc degeneration, unspecified cervical region
CPT/HCPCS: 99211

== ENCOUNTER → 2020-11-26 | Day surgery (SDC) | payer OTHER ==
[2020-11-25 09:37] VITALS: BMI 27.8
[~2020-11-26] MED LIST changes: +IV FLUID CONTINUATION 1,000 ML IV ONE; +MIDAZOLAM 2 MG/2 ML VIAL ONE; +ROPIVACAINE 5MG/ML 20ML VIAL ONE; +fentaNYL (PF) 50 MCG/ML 2 ML AMP ONE; +methylPREDNISolone ACETATE 40 MG/ML 1 ML VIAL ONE
[2020-11-26 13:10] VITALS: TEMP 97.1
--- NOTE | 2020-11-26 14:10 | P.PCN ---
Date of Procedure: 11/26/20 Procedure(s) Performed: PREOPERATIVE DIAGNOSIS: Cervical spondylosis with Facet Arthropathy without myelopathy. POSTOPERATIVE DIAGNOSIS: Cervical spondylosis with Facet Arthropathy without myelopathy. PROCEDURES: Radiofrequency thermocoagulation Left C3, C4, C5, medial branch with Fluroscopy [place](fluoroscopy was available in etiology department ) (to denervate the facet joint at left C3- 4 , C4- 5 ) ANESTHESIA: moderate sedation with fentanyl 100 micrograms and Versed 2 mg EBL: Minimal PROCEDURE INDICATION: The patient with neck pain secondary to cervical arthropathy who had more than 50% relief of her pain with previous diagnostic cervical medial branch block. PROCEDURE DESCRIPTION / TECHNIQUE: The patient was seen and identified in the preoperative area. Risks, benefits, complications, and alternatives were discussed with the patient, the patient agreed to proceed with the procedure and signed the consent. IV was started. Vital signs remained stable throughout the procedure. Patient was taken to the OR and time out was completed. The patient was placed in the prone position on the procedure table. A pillow was placed under the patients chest to increase the cervical interlaminar space. The cervical area was prepped and draped in the usual sterile fashion. Critical pause was taken. Vital signs were closely monitored during the procedure. Conscious sedation was used during the procedure to decrease patients anxiety. Using cross-table lateral fluoroscopy, the centroid of the trapezoid of left C3, C4, C5, were identified, marked, and localized with 1% lidocaine. Subsequently, a 20 -ck radiofrequency cannula with a 10-mm active tip was advanced guided by fluoroscopy to the centroid of the trapezoid of left C3, C4, C5 . Needle tip position was confirmed at the centroid of the trapezoids of left C3, C4, C5, with anteroposterior fluoroscopy. Each site then underwent sensory testing at 50 Hz and 0 to 1 volt and motor testing at 2 Hz and 0 to 3 volt with local stimulation, but no radicular symptoms down the arm. Thereafter each sites underwent radiofrequency thermocoagulation at 80 degrees celsius for 90 seconds after injecting 0.5 ml of PF Ropivacaine 0.5 %. After thermocoagulation, 1 ml of the block solution containing Depo-Medrol 40 mg and 5 mL of preservative-free normal saline was injected at the left C3, C4, C5, levels after negative aspiration of CSF and blood and with no paresthesias. Cannulas were retracted while injecting lidocaine 1% until the needle is out. Skin was cleansed and bandages were applied. COMPLICATIONS: No acute complications. DISPOSITION / PLANS: The patient was placed in a supine position and transferred to the recovery area in a stable condition for observation and was discharged from the recovery room after meeting discharge criteria. Home discharge instructions given to the patient by the staff. The patient was reexamined prior to discharge. The patient will schedule a follow up in the clinic in 2-4 weeks.
--- NOTE | 2020-11-26 14:16 | FL ---
Fluoroscopy History: Left Cerv Rad Freq 9sec fluoor time,2 images scanned
[2020-11-26 14:36] VITALS: BP 138/72; PULSE 68; RESP 16
== END | disposition home or self-care (01) ==
LOC: ORPAIN 12:36
PROVIDERS: ATTEND Specialist
DX: M47.812 Spondylosis without myelopathy or radiculopathy, cervical region (principal); Z88.5 Allergy status to narcotic agent; Z91.048 Other nonmedicinal substance allergy status
CPT/HCPCS: 64633; 64634; J2250; J1030; J3010; J2795; 99152

== ENCOUNTER → 2020-12-20 | Outpatient (CLI) | payer OTHER ==
[2020-12-20 09:29] VITALS: BP 134/73; PULSE 83; RESP 18; TEMP 97.7
--- NOTE | 2020-12-20 09:54 | P.PN ---
Subjective Progress Note Date: 12/20/20 This is a 54-year-old lady with history of neck pain with radiation to the left arm and numbness and the left hand. The patient had left cervical medial branch RFA about 2 weeks ago which resulted in 70% of pain relief in the neck area however it did cause some numbness in the skin over the left trapezius muscle and feeling of sharp needle in small spot on the left side of her neck. The patient denies any new paresthesia however in the upper or lower extremities since then or any new weakness however she does feel some weakness in her legs from time to time and she occasionally loses her speech with no reasonable explanation for that .she also occasionally loses control of her urine. Patient denies new-onset of weakness in the upper or lower extremities, or any other signs or symptoms of cauda equina syndrome. There are no signs of acute intoxication, and no indications of medication diversion or overuse. In addition to above, 13-point review of systems is also negative for chest pain, shortness of breath, changes in vision, changes in hearing, new onset weakness, abdominal pain, diarrhea, extreme fatigue, malaise, fever, skin changes, homicidal or suicidal ideation, or bowel or bladder incontinence. Vital Signs: Reviewed in EMR Gen: AAOx3, NAD HEENT: PERRLA,hearing grossly normal Pulm: resp unlabored Neck: supple, trachea midline Neuro exam of the upper extremities: Normal muscle strength bilaterally in the upper extremities. Straight leg raising test: Ashvin's test: Range of motion of the cervical spine: Slightly decreased to left rotation Facet loading test: Tenderness in the paravertebral musculature: Positive on the left side of her neck Neuro: CN II-XII grossly intact, Imaging: Reviewed in EMR/chart Assessment: Left Cervical radiculopathy Cervical spondylosis without myelopathy Plan: 1. Explanation: Opioid and psychological risk scores were reviewed. Diagnoses, prognoses, and multiple treatment options including but not limited to physical therapy, interventional therapies, adjuvant medical therapies, narcotic medication therapies, and surgery were discussed with the patient and all questions were answered to the patient's satisfaction. 2. Opioid agreement: Signed with the patient and the patient is warned not to use opioids while driving or before driving and not to combine opioids with benzodiazepines or alcohol. 3. Counseling: The patient was counseled extensively on SMOKING CESSATION, BODY MASS INDEX, EXERCISE. Specifically, the patient was instructed regarding the importance of smoking cessation, obesity, and exercise in the context of both chronic pain and overall health. 4. Procedures: None for now 5. Consultations: The patient will have to follow up with her neurosurgeon if her symptoms of urine incontinence or weakness in the extremities get worse. 6. Investigations: None 7. Medications: None 8. Disposition: Return to clinic as needed 9. Maps were reviewed and were appropriate. Objective - Vital Signs Vital signs: Vital Signs Temp 97.7 F 12/20/20 09:24 Pulse 83 12/20/20 09:24 Resp 18 12/20/20 09:24 BP 134/73 12/20/20 09:24 Pulse Ox 99 12/20/20 09:24
== END | disposition home or self-care (01) ==
LOC: PNWHC3 09:13
PROVIDERS: ATTEND Anesthesiology
DX: M47.22 Other spondylosis with radiculopathy, cervical region (principal)
CPT/HCPCS: 99211

== ENCOUNTER 2021-02-13 10:49 | Emergency (ER) | payer OTHER ==
[2021-02-13] MEDS ORDERED: SODIUM CHLORIDE 0.9% 1,000 ML IV ONE (11:11)
[2021-02-13 11:24] LABS: Basophils % (A) 0 %; Eosinophils % (A) 0 %; HCT 37.7 % (34.0-46.0); HGB 13.1 gm/dL (11.4-16.0); Lymphocytes # (A) 0.7 k/uL (1.0-4.8); Lymphocytes % (A) 19 %; MCH 28.1 pg (25.0-35.0); MCHC 34.6 g/dL (31.0-37.0); MCV 81.1 fL (80.0-100.0); Mean Platelet Volume 6.9; Monocytes # (A) 0.2 k/uL (0-1.0); Monocytes % (A) 5 %; Neutrophils # (A) 2.6 k/uL (1.3-7.7); Neutrophils % (A) 74 %; Platelet Count 186 k/uL (150-450); RBC 4.65 m/uL (3.80-5.40); RDW 13.5 % (11.5-15.5); WBC 3.5 k/uL (3.8-10.6)
[2021-02-13 11:39] LABS: INR 0.9 (<1.2); Prothrombin Time 9.6 sec (9.0-12.0)
[2021-02-13 11:40] LABS: Partial Thromboplastin Time 28.8 sec (22.0-30.0)
--- NOTE | 2021-02-13 11:44 | XR ---
EXAMINATION TYPE: XR chest 1V portable DATE OF EXAM: 02/13/2021 COMPARISON: Chest x-ray December 29, 2019. CTA chest January 06, 2019. HISTORY: Cough and shortness of breath. TECHNIQUE: Single AP portable frontal upright view of the chest is obtained. FINDINGS: There aren't chronic parenchymal changes bilaterally. Diminished inspiration with patchy b ibasilar opacities favoring atelectasis. The cardiac silhouette size remains within normal limits. The osseous structures remain demineralized. IMPRESSION: Diminished inspiration, patchy basilar opacities favoring atelectasis.
[2021-02-13 11:45] LABS: D-Dimer 0.8 mg/L FEU (<0.60)
[2021-02-13 11:54] LABS: Albumin 3.7 g/dL (3.5-5.0); C Reactive Protein 6.4 mg/dL (<1.0); Calcium 8.5 mg/dL (8.4-10.2); Magnesium 2.1 mg/dL (1.6-2.3); Potassium 3.4 mmol/L (3.5-5.1); Total Bilirubin 0.5 mg/dL (0.2-1.3); Total Protein 6.4 g/dL (6.3-8.2)
--- NOTE | 2021-02-13 12:26 | CT ---
EXAMINATION TYPE: CT chest angio for PE DATE OF EXAM: 02/13/2021 COMPARISON: Chest x-ray earlier today HISTORY: elevated d dimer, cough, SOB CT DLP: 312.6 mGycm Automated exposure control for dose reduction was used. CONTRAST: CT Chest for pulmonary embolism performed with with IV Contrast, patient injected with 100 mL of Isov ue 370. FINDINGS: LUNGS: Multifocal areas of groundglass opacity bilaterally greatest in the periphery and greatest in the lower lungs but with some upper lung involvement is seen on CT less well seen on x-rays. No pleur al effusion or pneumothorax seen bilaterally. MEDIASTINUM: There is satisfactory enhancement of the pulmonary artery and its branches, there is no CT evidence for pulmonary embolism. There are no greater than 1 cm hilar or mediastinal lymph nodes. No cardiomegaly or pericardial effusion is seen. OTHER: No additional significant abnormality is seen. IMPRESSION: Bilateral multifocal areas of increased groundglass opacities greatest in the periphery a nd in the lower lungs consistent with covid-19 infection are identified and not as well-seen on plain film. No CT evidence for acute pulmonary embolism.
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
[2021-02-13] MEDS ORDERED: SODIUM CHLORIDE 0.9% 50 ML IVPB ONE (13:00)
[2021-02-13] MEDS ORDERED: BAMLANIVIMAB (EUA) 700 MG, ETESEVIMAB (EUA) 1,400 MG in SODIUM CHLORIDE 0.9% 50 ML IVPB ONE (13:15)
[2021-02-13 13:40] VITALS: RESP 16
[2021-02-13 14:06] VITALS: BP 121/75; PULSE 68; TEMP 98
[2021-02-13 16:58] LABS: Ferritin 59.1 ng/mL (10.0-291.0)
== END 2021-02-13 14:45 | disposition home or self-care (01) ==
LOC: EC 10:49
DX: U07.1 COVID-19 (principal); R11.2 Nausea with vomiting, unspecified; R19.7 Diarrhea, unspecified; E78.5 Hyperlipidemia, unspecified; I10 Essential (primary) hypertension; M19.90 Unspecified osteoarthritis, unspecified site; F32.9 Major depressive disorder, single episode, unspecified; Z87.891 Personal history of nicotine dependence; Z79.82 Long term (current) use of aspirin
CPT/HCPCS: 96360; 96361; 99285; M0245; 36415; 71045; 71275; 80053; 82728; 83605; 83615; 83735; 84145; 84484; 85025; 85379; 85610; 85730; 86140; 87635; 93005

== ENCOUNTER → 2021-11-10 | Outpatient (CLI) | payer OTHER ==
--- NOTE | 2021-11-14 12:20 | MM ---
Reason for exam: screening (asymptomatic). Last mammogram was performed 2 years and 6 months ago. History: Patient is postmenopausal. Family history of breast cancer in mother at age 80 and breast cancer in grandmother. Took hormonal contraceptives for 3 years beginning at age 18. Took estrogen for 1 year. Physical Findings: A clinical breast exam by your physician is recommended on an annual basis and results should be correlated with mammographic findings. MG Screening Mammo w CAD Bilateral CC and MLO view(s) were taken. Prior study comparison: May 21, 2019, bilateral MG screening mammo w CAD. November 30, 2017, bilateral MG screening mammo w CAD. The breast tissue is heterogeneously dense. This may lower the sensitivity of mammography. There is no discrete abnormality. ASSESSMENT: Negative, BI-RAD 1 RECOMMENDATION: Routine screening mammogram of both breasts in 1 year.
== END | disposition home or self-care (01) ==
LOC: RADMAMWWP 14:39
PROVIDERS: ATTEND Family Medicine
DX: Z12.31 Encounter for screening mammogram for malignant neoplasm of breast (principal); Z80.3 Family history of malignant neoplasm of breast; Z78.0 Asymptomatic menopausal state
CPT/HCPCS: 77067

== ENCOUNTER → 2022-06-10 | Outpatient (CLI) | payer BC ==
[2022-06-10 08:58] LABS: African American GFR (CKD) 63 (>60 ml/min/1.73 sqM); Anion Gap 10 mmol/L; Blood Urea Nitrogen 18 mg/dL (7-17); Calcium 8.8 mg/dL (8.4-10.2); Carbon Dioxide 25 mmol/L (22-30); Chloride 105 mmol/L (98-107); Glucose 72 mg/dL (74-99); Non-African American GFR(CKD) 54 (>60 ml/min/1.73 sqM); Potassium 3.5 mmol/L (3.5-5.1); Sodium 140 mmol/L (137-145)
== END | disposition home or self-care (01) ==
LOC: LABWHC1 08:32
PROVIDERS: ATTEND Family Medicine
DX: N17.9 Acute kidney failure, unspecified (principal)
CPT/HCPCS: 36415; 80048

== ENCOUNTER → 2024-04-04 | Day surgery (SDC) | payer BC, OTHER ==
[2024-04-02 12:27] VITALS: BMI 29.8
[~2024-04-04] MED LIST changes: -IV FLUID CONTINUATION 1,000 ML IV ONE; -LACTATED RINGERS 1,000 ML IV SCH; -MIDAZOLAM 2 MG/2 ML VIAL ONE; -ROPIVACAINE 5MG/ML 20ML VIAL ONE; -methylPREDNISolone ACETATE 40 MG/ML 1 ML VIAL ONE
[2024-04-04] MEDS: SODIUM CHLORIDE 0.9% 500 ML 500 ML IV ONE (08:47)
[2024-04-04 08:56] VITALS: TEMP 97.8
[2024-04-04] MEDS: BENZOCAINE SPRAY 1 CAN TOPICAL ONE (10:17)
[2024-04-04] MEDS: MIDAZOLAM 2 MG/2 ML VIAL IVP ONE (10:26)
[2024-04-04] MEDS: fentaNYL (PF) 50 MCG/ML 2 ML AMP IVP ONE (10:27)
--- NOTE | 2024-04-04 11:01 | ECHOT ---
TRANSESOPHAGEAL ECHOCARDIOGRAM INDICATION: TIA. PROCEDURE NOTE: After obtaining informed consent, transesophageal echocardiogram was performed in left lateral position using an Omniplane probe. Local and IV sedation were obtained with 2 mg of Versed and 50 mcg of fentanyl. The patient received moderate conscious sedation. Total sedation time was 10 minutes. FINDINGS: 1. There is no intracardiac thrombus within the left atrial appendage, left atrium, right atrium, right ventricle. 2. Left ventricle has normal size and systolic function. 3. Mitral valve is anatomically normal. There is mild central mitral regurgitation noted. 4. Tricuspid valve shows mild tricuspid regurgitation. 5. Aortic valve is free of stenosis or regurgitation. 6. Aortic root measures within normal limits. 7. Interatrial septum, there is no evidence of [id number] shunt by color-flow Doppler or [id number] shunt by agitated saline contrast study. This is a technically suboptimal study due to issues with color Doppler and spectral analysis. CONCLUSIONS: No intracardiac source for thromboembolic CVA is identified in this study. MMODL / IJN: [id number] /
[2024-04-04 14:48] VITALS: RESP 16
[2024-04-04 14:49] VITALS: BP 135/63; PULSE 82
== END ==
LOC: CATHCVL 08:29
PROVIDERS: ATTEND Internal Medicine Cardiovascular Disease
DX: G45.9 Transient cerebral ischemic attack, unspecified (principal); I08.1 Rheumatic disorders of both mitral and tricuspid valves; I10 Essential (primary) hypertension; E78.5 Hyperlipidemia, unspecified; Z82.49 Family history of ischemic heart disease and other diseases of the circulatory system; Z87.891 Personal history of nicotine dependence; Z88.5 Allergy status to narcotic agent; Z88.8 Allergy status to other drugs, medicaments and biological substances; Z91.09 Other allergy status, other than to drugs and biological substances; Z79.82 Long term (current) use of aspirin; Z79.890 Hormone replacement therapy; Z79.899 Other long term (current) drug therapy
CPT/HCPCS: 93312; 93320; 93325; J2250; J3010

== ENCOUNTER → 2024-07-30 | Outpatient (CLI) | payer OTHER ==
--- NOTE | 2024-07-30 11:26 | CT ---
EXAMINATION TYPE: CT angio head CT DLP: 2428.3 mGycm, Automated exposure control for dose reduction was used. DATE OF EXAM: 07/30/2024 10:39 AM COMPARISON: CTA neck 04/14/2020, MRI brain C-spine 04/02/2020, CT brain C-spine 12/29/2019 CLINICAL INDICATION:Female, 64 years old with history of R47.9 UNSPECIFIED SPEECH DISTURBANCES; PHH, Unspecified speech disturbances, hx TIAs TECHNIQUE: Axially acquired helical CT angiogram of the head was obtained before and after contrast u tilizing 75 cc of Isovue-370 administered intravenously. Axial images are supplemented with 3D recons tructions which were post-processed at an independent workstation. NASCET criteria used. FINDINGS: No evidence of acute intracranial hemorrhage, mass effect, or midline shift. The ventricles, sulci, a nd cisterns are unremarkable. Bilateral aphakia. Age-appropriate cerebral volume loss. Mild mucosal t hickening in the inferior left maxillary sinus. The visualized portions of the internal carotid arteries, middle cerebral arteries, anterior cerebral arteries, and posterior cerebral arteries are patent. The basilar and vertebral arteries are patent. Vertebral arteries are codominant. IMPRESSION: No evidence of high-grade stenosis or intracranial aneurysm. [facility], , 07/30/2024 11:24 AM
== END | disposition home or self-care (01) ==
LOC: RADCTMAIN 08:49
PROVIDERS: ATTEND Family Medicine
DX: R47.9 Unspecified speech disturbances (principal)
CPT/HCPCS: 70496

== ENCOUNTER → 2024-08-20 | Outpatient (CLI) | payer OTHER ==
--- NOTE | 2024-08-20 16:43 | US ---
EXAMINATION TYPE: US carotid duplex BILAT DATE OF EXAM: 08/20/2024 COMPARISON: CT neck 04/14/2020 CLINICAL INDICATION: Female, 64 years old with history of R47.9 SPEECH DISTURBANCES; Hx multiple TIA' s. HTN- on meds. TECHNIQUE: Grayscale, color Doppler and spectral Doppler evaluation of the bilateral carotid systems and vertebral arteries. Indirect Doppler criteria was utilized. FINDINGS: EXAM MEASUREMENTS: RIGHT: Peak Systolic Velocity (PSV) cm/sec ----- Right CCA: 74.6 ----- Right ICA: 74.9 ----- Right ECA: 77.3 ICA/CCA ratio: 1.0 RIGHT: End Diastole cm/sec ----- Right CCA: 24.1 ----- Right ICA: 32.2 ----- Right ECA: 12.7 LEFT: Peak Systolic Velocity (PSV) cm/sec ----- Left CCA: 78.2 ----- Left ICA: 81.2 ----- Left ECA: 56.7 ICA/CCA ratio: 1.0 LEFT: End Diastole cm/sec ----- Left CCA: 20.6 ----- Left ICA: 36.2 ----- Left ECA: 7.5 VERTEBRALS (direction of flow): Right Vertebral: Antegrade Left Vertebral: Antegrade Rhythm: Normal MATERIAL DAMAGE APPRAISER NOTES: No elevated velocities. No plaque seen. IMPRESSION: No ultrasound evidence for hemodynamically significant stenosis of the bilateral visualized carotid a rterial systems. Criteria for Assigning % of Stenosis / Diameter reduction (Estimation based on the indirect measurements of the internal carotid artery velocities (ICA PSV). 1. Normal (no stenosis)=ICA PSV < 125 cm/s: ratio < 2.0: ICA EDV<40 cm/s. 2. Less than 50% stenosis=ICA PSV < 125 cm/s: ratio < 2.0: ICA EDV<40 cm/s. 3. 50 to 69% stenosis=ICA PSV of 125 to 230 cm/s: ration 2.0 ? 4.0: ICA EDV 40-100 cm/s. 4. Greater than 70% stenosis to near occlusion= ICA PSV > 230 cm/s: ratio > 4.0: ICA EDV > 100 cm/s. 5. Near occlusion= ICA PSV velocities may be low or undetectable: variable ratio and ICA EDV. 6. Total occlusion=unable to detect flow. [facility], , 08/20/2024 4:41 PM
== END | disposition home or self-care (01) ==
LOC: RADUSWWP 14:58
PROVIDERS: ATTEND Family Medicine
CPT/HCPCS: 93880

== ENCOUNTER 2024-11-06 07:06 | Day surgery (SDC) | payer OTHER ==
[2024-10-31 18:19] VITALS: BMI 30.9
[~2024-11-06 07:06] MED LIST changes: +SODIUM CHLORIDE 0.9% 1,000 ML IV SCH; -fentaNYL (PF) 50 MCG/ML 2 ML AMP ONE
[2024-11-06] MEDS: SODIUM CHLORIDE 0.9% 500 ML 500 ML IV ONE (07:18)
[2024-11-06 07:26] VITALS: RESP 16; TEMP 97
[2024-11-06 09:13] VITALS: BP 127/88; PULSE 86
--- NOTE | 2024-11-06 11:39 | P.EPPROC ---
- EP Procedure Note Electrophysiology Procedure Note: Diagnosis Recurrent presyncope Twelve-lead EKG shows sinus rhythm with nonspecific ST-T abnormality normal cardiac intervals normal QT interval Tilt table test per protocol Baseline blood pressure 142/72 mmHg baseline heart rate 86 beats a minute Patient was tilted upright in angle of 70 degrees per protocol. Her blood pressure remained elevated through the procedure between 140-170 mmHg There was an immediate increase in heart rate to 130 beats a minute and then settled down to between 110 to 120 bpm. The patient had a variety of symptoms of feeling warm tingling tiredness and headache When she was laid supine heart rate improved once again Impression Nonspecific ST abnormalities on twelve-lead EKG Elevated heart rates with upright tilting, possible orthostatic intolerance However even her blood pressure was elevated with the upright position ? Anxiety response with elevated blood pressure and heart rates
== END 2024-11-06 09:27 | disposition home or self-care (01) ==
LOC: CATHEP 07:06
PROVIDERS: ATTEND Internal Medicine Clinical Cardiac Electrophysiology
DX: I95.1 Orthostatic hypotension (principal); I10 Essential (primary) hypertension; E78.2 Mixed hyperlipidemia; I34.0 Nonrheumatic mitral (valve) insufficiency; E03.9 Hypothyroidism, unspecified; M54.81 Occipital neuralgia; G24.3 Spasmodic torticollis; F17.210 Nicotine dependence, cigarettes, uncomplicated; Z79.82 Long term (current) use of aspirin; Z79.02 Long term (current) use of antithrombotics/antiplatelets; Z79.890 Hormone replacement therapy; Z79.899 Other long term (current) drug therapy; Z86.73 Personal history of transient ischemic attack (TIA), and cerebral infarction without residual deficits; Z82.49 Family history of ischemic heart disease and other diseases of the circulatory system; Z88.5 Allergy status to narcotic agent
CPT/HCPCS: 93660